=== PATIENT | female | born 1965 | race Caucasian/White ===

== ENCOUNTER → 2020-11-13 11:59 | Outpatient (CLI) | payer OTHER, SELFPAY ==
[2020-11-13 14:57] LABS: Absolute Lymphocyte Count 2.51 X10^3/uL (0.83-4.51); Absolute Neutrophil Count 5.8 X10^3/uL (2.0-7.7); Basophil# 0.05 X10^3/uL; Basophil% 0.6 % (0-1); Eosinophil# 0.12 X10^3/uL; Eosinophils% 1.3 % (0-5); Hematocrit 43.1 % (37-47); Hemoglobin 13.1 g/dL (12.0-15.0); Lymphocyte # 2.51 X10^3/ul (4.0); Lymphocyte % 28.2 % (19-41); Mean Corp Hgb Conc 30.4 g/dL (32-36); Mean Corpuscular Hgb 27.7 pg (27.0-32.0); Mean Corpuscular Volume 91.1 fL (81-99); Mean Platelet Vol. 10.6 fl (6.2-12.0); Monocyte# 0.42 X10^3/uL; Monocyte% 4.7 % (0-10); NRBC Flagged by Analyzer 0 % (0-5); Neutrophil # 5.77 X10^3/uL (2.7-7.7); Neutrophil % 64.8 % (47-70); Platelet Count 356 K/mm3 (150-450); RBC Distribution Width CV 13.7 % (11.6-14.6); Red Blood Count 4.73 M/mm3 (4.2-5.4); White Blood Count 8.9 K/mm3 (4.4-11.0)
[2020-11-13 15:26] LABS: Vitamin D,25 Hydroxy 37.2 ng/mL
[2020-11-13 15:36] LABS: ALB/GLOB Ratio 1.1 RATIO (0.9-2.4); AST(SGOT) 24 U/L (15-37); Alanine Aminotransfer ALT/SGPT 39 U/L (13-56); Albumin, Serum 4.2 g/dL (3.2-5.0); Alkaline Phosphatase 113 U/L (45-117); Anion Gap 6 (5-15); BUN 13 mg/dL (7-18); BUN/Creat Ratio 14.7 RATIO (10-20); Calcium,Total 9.3 mg/dL (8.5-10.1); Chloride 106 mmol/L (98-107); Cholesterol 200 mg/dL (200); Creatinine, Serum 0.88 mg/dL (0.55-1.02); EST Glomerular Filtration Rate 70 mL/min (>60); Est Glom Filt Rate - Afr Amer 85 mL/min (>60); Globulin 3.9 g/dL (2.2-4.2); Glucose 94 mg/dL (74-106); High Density Lipoprotein 46 mg/dL; Potassium 3.9 mmol/L (3.5-5.1); Protein, Total 8.1 g/dL (6.4-8.2); Sodium Level 138 mmol/L (136-145); T4 Free Direct 1.33 ng/dL (0.76-1.46); Thyroid Stim Hormone (TSH) 1.43 uIU/mL (0.358-3.74); Triglycerides 130 mg/dL; Very Low Density Lipoprotein 26 mg/dL (5-40)
== END ==
PROVIDERS: Referring Provider Nurse Practitioner Family; Visit Provider Nurse Practitioner Family
DX: Z00.00 Encounter for general adult medical examination without abnormal findings (principal); I10 Essential (primary) hypertension; E03.9 Hypothyroidism, unspecified
CPT/HCPCS: 36415; 80053; 80061; 82306; 84439; 84443; 85025

== ENCOUNTER → 2022-01-07 | Outpatient (CLI) | payer OTHER, SELFPAY ==
[2022-01-07 12:19] LABS: Absolute Lymphocyte Count 2.39 X10^3/uL (0.83-4.51); Absolute Neutrophil Count 4.2 X10^3/uL (2.0-7.7); Basophil# 0.07 X10^3/uL; Eosinophil# 0.15 X10^3/uL; Eosinophils% 2.1 % (0-5); Lymphocyte # 2.39 X10^3/ul (0.83-4.51); Lymphocyte % 33.1 % (19-41); Mean Corpuscular Hgb 27.8 pg (27.0-32.0); Mean Corpuscular Volume 89.9 fL (81-99); Mean Platelet Vol. 10.1 fl (6.2-12.0); Monocyte# 0.42 X10^3/uL; Monocyte% 5.8 % (0-10); NRBC Flagged by Analyzer 0 % (0-5); Neutrophil # 4.15 X10^3/uL (2.7-7.7); Neutrophil % 57.6 % (47-70); Platelet Count 338 K/mm3 (150-450); RBC Distribution Width CV 13.4 % (11.6-14.6); RBC Distribution Width SD 44.4 fl (35.1-43.9); Red Blood Count 4.67 M/mm3 (4.2-5.4); White Blood Count 7.2 K/mm3 (4.4-11.0)
[2022-01-07 12:42] LABS: Vitamin D,25 Hydroxy 47.1 ng/mL
[2022-01-07 12:53] LABS: AST(SGOT) 13 U/L (15-37); Alanine Aminotransfer ALT/SGPT 21 U/L (13-56); Albumin, Serum 3.8 g/dL (3.2-5.0); Alkaline Phosphatase 97 U/L (45-117); Anion Gap 7 (5-15); BUN 19 mg/dL (7-18); BUN/Creat Ratio 21.3 RATIO (10-20); Calcium,Total 9.1 mg/dL (8.5-10.1); Chloride 108 mmol/L (98-107); Cholesterol 172 mg/dL (200); Creatinine, Serum 0.89 mg/dL (0.55-1.02); EST Glomerular Filtration Rate 69 mL/min (>60); Est Glom Filt Rate - Afr Amer 84 mL/min (>60); Globulin 3.8 g/dL (2.2-4.2); Glucose 99 mg/dL (74-106); High Density Lipoprotein 41 mg/dL; Protein, Total 7.6 g/dL (6.4-8.2); Sodium Level 140 mmol/L (136-145); T4 Free Direct 1.48 ng/dL (0.76-1.46); Thyroid Stim Hormone (TSH) 0.06 uIU/mL (0.358-3.74); Triglycerides 140 mg/dL; Very Low Density Lipoprotein 28 mg/dL (5-40)
== END | disposition home or self-care (01) ==
LOC: BIMLAB 08:08
PROVIDERS: PCP Nurse Practitioner Family; Referring Provider Nurse Practitioner Family; Visit Provider Nurse Practitioner Family
DX: Z00.00 Encounter for general adult medical examination without abnormal findings (principal); E56.9 Vitamin deficiency, unspecified
CPT/HCPCS: 36415; 80053; 80061; 82306; 84439; 84443; 85025

== ENCOUNTER → 2022-02-17 | Outpatient (CLI) | payer OTHER, SELFPAY ==
--- NOTE | 2022-02-17 11:27 | BI_ITS ---
MAMMOGRAPHY - BILATERAL SCREENING REASON FOR EXAM: Female, 56 years old. Routine annual screening examination. PERTINENT HISTORY: Aunts with breast cancer. TECHNIQUE: Digital bilateral breast satnam (3D mammographic acquisition) in the CC and MLO projections. 2-D mediolateral oblique (MLO) and craniocaudad (CC) views of both breasts were obtained. CAD: Full Field Digital Mammography with Computer Added Detection was performed. COMPARISON: Comparison is made with prior outside examination 03/15/2019. FINDINGS: Breast Composition: There are scattered areas of fibroglandular density. There are no dominant masses or suspicious calcifications. No other significant abnormalities are identified. There has been no significant change since the prior study. BI/SCRN MAMM (CAD)W/SATNAM BILAT IMPRESSION: Stable bilateral screening mammogram. Yearly follow-up mammogram recommended. (A) ASSESSMENT CATEGORY: BIRADS Category 1: Negative. A letter regarding these results will be sent to the patient by the facility within 30 days. Approximately 10% of breast cancers are not detected by mammography. A normal mammogram should not delay biopsy of a clinically suspicious abnormality. [id number] Electronically Signed: Mike Holguin MD at 8:35 EDT ,
--- NOTE | 2022-02-17 11:29 | BD_ITS ---
STUDY: DUAL ENERGY X-RAY ABSORPTIOMETRY / DXA REASON FOR EXAM: Female, 56 years old. Screening TECHNIQUE: Bone Mineral Density (BMD) measurements of lumbar spine and bilateral hips were obtained. COMPARISON: None. FINDINGS: Lumbar Spine (L1-L4): g/cm2 (0.893) / T-score (-1.4) / Z-score (-0.2) Findings are suggestive of osteopenia with a low fracture risk. Left Femur Total: g/cm2 (0.838) / T-score (-0.9) / Z-score (-0.1) Left Femoral Neck: g/cm2 (0.737) / T-score (-1.0) / Z-score (0.1) Right Femur Total: g/cm2 (0.917) / T-score (-0.2) / Z-score (0.6) Right Femoral Neck: g/cm2 (0.723) / T-score (-1.1) / Z-score (0.0) BD/Dexa Bone Density Study IMPRESSION: The patient is considered osteopenic as outlined below according to World Fahe[employer] Organization (WHO) criteria with a low fracture risk. Reference Information: The T-score is the number of standard deviations above or below the standard which is normal for young adults at their peak bone mineral density. The World Health Organization (WHO) interprets the T-scores as follows: Above -1 Normal bone density Between -1 and -2.5 Osteopenia Equal to / or below -2.5 Osteoporosis As a practical clinical guideline, osteopenia may be graded as follows: Mild -1 through -1.5 Moderate -1.6 through -2.0 Severe -2.1 through -2.4 The Z-score is the number of standard deviations above or below age-matched controls. A Z-score of less than -1.5 would be considered abnormal. References: 1. NIH Osteoporosis and Related Bone Diseases www osteo.org 2. International Society for Clinical Densitometry www iscd.org 3. National Osteoporosis Foundation www nof.org Electronically Signed: Mike Holguin MD at 14:19 EDT ,
== END | disposition home or self-care (01) ==
LOC: OPBD 11:26
PROVIDERS: PCP Nurse Practitioner Family; Visit Provider Nurse Practitioner Family
DX: Z78.0 Asymptomatic menopausal state (principal); Z12.31 Encounter for screening mammogram for malignant neoplasm of breast
CPT/HCPCS: 77063; 77067; 77080

== ENCOUNTER → 2022-11-19 | Outpatient (CLI) | payer OTHER, SELFPAY ==
[2022-11-19 17:21] LABS: T4 Free Direct 1.38 ng/dL (0.76-1.46); Thyroid Stim Hormone (TSH) 0.86 uIU/mL (0.358-3.74)
== END | disposition home or self-care (01) ==
PROVIDERS: PCP Nurse Practitioner Family; Referring Provider Nurse Practitioner Family; Visit Provider Nurse Practitioner Family
DX: E03.9 Hypothyroidism, unspecified (principal)
CPT/HCPCS: 36415; 84439; 84443

== ENCOUNTER → 2024-11-06 | Outpatient (CLI) | payer OTHER, SELFPAY ==
[2024-11-06 13:31] LABS: Cholesterol 160 mg/dL (<=200); High Density Lipoprotein 44 mg/dL; Low Density Lipoprotein Calc. 80 mg/dL; Triglycerides 182 mg/dL; Very Low Density Lipoprotein 36 mg/dL (5-40); Vitamin D,25 Hydroxy 34.1 ng/mL (30-100); cholesterol:hdl ratio screen 3.65
[2024-11-06 13:51] LABS: ALB/GLOB Ratio 1.3 RATIO (0.9-2.4); AST(SGOT) 19 U/L (<=31); Alanine Aminotransfer ALT/SGPT 16 U/L (<=34); Albumin, Serum 4.3 g/dL (3.5-5.0); Alkaline Phosphatase 115 U/L (35-104); Anion Gap 11 (5-15); BUN 16 mg/dL (4-19); BUN/Creat Ratio 19.2 RATIO (10-20); Calcium,Total 9.4 mg/dL (7.6-11.0); Chloride 105 mmol/L (98-108); Creatinine, Serum 0.83 mg/dL (0.70-1.20); EST Glomerular Filtration Rate 82 (>60); Globulin 3.2 g/dL (2.2-4.2); Glucose 108 mg/dL (70-99); Potassium 4.1 mmol/L (3.3-5.1); Protein, Total 7.5 g/dL (5.9-8.4); Sodium Level 140 mmol/L (133-145); Total Bilirubin 0.36 mg/dL (0.00-1.30)
== END | disposition home or self-care (01) ==
LOC: BIMLAB 10:04
PROVIDERS: PCP Nurse Practitioner Family; Visit Provider Nurse Practitioner Family
DX: E03.9 Hypothyroidism, unspecified (principal)
CPT/HCPCS: 36415; 80053; 80061; 82306; 84439; 84443

== ENCOUNTER → 2025-02-22 | Outpatient (CLI) | payer OTHER, SELFPAY ==
--- NOTE | 2025-02-22 07:21 | BI_ITS ---
EXAM: SCRN MAMM (CAD)W/SATNAM BILAT DATE: 02/22/2025 CLINICAL HISTORY: F, Age 59 y/o , SCREENING TECHNIQUE: SCRN MAMM (CAD)W/SATNAM BILAT COMPARISON: Prior exam(s) dated 02/17/2022. FINDINGS: TISSUE DENSITY: The breasts are almost entirely fatty. Bilateral Breast Mammographic Findings: No significant masses, calcifications or other abnormalities are identified. BI/SCRN MAMM (CAD)W/SATNAM BILAT IMPRESSION: There is no mammographic evidence of malignancy. OVERALL FINAL ASSESSMENT BI-RADS 1: NEGATIVE. RECOMMEND ANNUAL MAMMOGRAPHIC SCREENING. RECOMMENDATION: Routine annual follow-up in 1 Year A letter with findings and recommendations will be mailed to the patient. Reading Location: [id number]
--- OUTSIDE RECORDS SUMMARY | 2025-02-22 07:21 | XMS RPT_ITS | CCD ---
Author Organization [facility] Care Team Providers Care Freight Receiver Name Role Phone Rebecca K 12 PRINCIPAL, K 12 PRINCIPAL-C Maykel Primary Care Provider Annalise Teran Attending Provider Unavailable Rebecca K 12 PRINCIPAL, K 12 PRINCIPAL-C Maykel Attending Provider Rebecca FARR, K 12 PRINCIPAL-C Maykel Referring Provider [phone] Self Primary Care Provider ESTEFANIA Nicole Attending Unavailable Asher FARR-Carolyne Gonzalez Primary Care Provider Carolyne Gordon Attending Provider Self Primary Care Provider UnavailEDIL Leslie Referring Unavailsilke e SELF Primary Care Unavailable NURSE, IMB Attending Unavailable Carolyne Sterling Attending Unavailable Carolyne Sterling Primary Care Unavailable Carolyne Sterling Primary Care Unavailable Carolyne Sterling Referring Unavailable Carolyne Sterling Attending Unavailable EDIL WOOD Attending UnavailEDIL Leslie Referring Unavailsilke e SELF Primary Care Unavailable Allergies Allergy Classification Reported Allergen(s) Allergy Type Date of Onset Reaction(s) Facility (12 sources) Cephalosporins (Antibiotic); Translations: [CEPHALOSPORINS] Allergy to substance 2 Other: See Comments [facility] (12 sources) Penicillins; Translations: [PENICILLINS] Allergy to substance 2 Other: See Comments [facility] Medications Current Medications Medication Drug Class(es) Dates Sig (Normalized) Sig (Original) cholecalciferol 0.05 mg oral capsule (8 sources) Vitamin D Start: 01-07-2022 take 1 capsule by mouth once daily Cholecalciferol (Vitamin D3) 50 mcg (2,000 unit) capsule Active 50 ug PO DAILY January 07, 2022 12:00am take 1 capsule by [facility] four times weekly Cholecalciferol, Vitamin D3, (VITAMIN D- 3) 2,000 unit cap Take 2,000 Units by mouth four times a week. Active Comment on above: Take 2,000 Units by mouth four times a week. citric acid 84943 mg / magnesium oxide 3500 mg / picosulfate sodium 10 mg powder for oral solution (4 sources) Calculi Dissolution Agent, Anti-coagulant Start: 10-19-2017 sod picosulf-mag ox-citric ac (PREPOPIK) 10 mg-3.5 gram-12 gram pwpk Indications: Personal history of colonic polyps Follow the instructions provided by your doctor. 2 Packet 10/19/2017 Active Comment on above: Follow the instructi ons provided by your doctor. ergocalciferol, vitamin D2, (VITAMIN D2 ORAL) (4 sources) ergocalciferol, vitamin D2, (VITAMIN D2 ORAL) Take by mouth. Active ergocalciferol, vitamin D2, (VITAMIN D2 ORAL) Take by mouth. 0 Active Comment on above: Take by mouth. ibandronic acid 150 mg oral tablet (4 sources) Bisphosphonate Start: 03-19-20 19 take 1 tablet by mouth every month Ibandronate 150 mg tablet Indications: Postmenopausal bone loss Take 1 tablet by mouth once every month. 3 tablet 3 03/19/2019 Active Comment on above: Take 1 tablet by annette th once every month. ibuprofen 200 mg oral capsule (4 sources) Nonsteroidal Anti-inflammatory Drug Ibuprofen 200 mg cap Take by mouth. Active Comment on above: Take by mouth. levothyroxine sodium 0.112 mg oral tablet (20 sources) l-Thyroxine Start: 04-04-20 20 End: 02-16-20 23 take 1 tablet by mouth once daily Levothyroxine 125 mcg tablet Discontinued 125 ug PO DAILY 90 January 30, 2021 10:03am January 07, 2022 1:25pm Start: 05-04-2018 End: 12-21-2023 take 1 tablet by mouth once daily levothyroxine (SYNTHROID) 112 mcg tablet Indications: Nontoxic single thyroid nodule Take 1 tablet by mouth once daily. 90 tablet 3 05/04/2018 Active Comment on above: Take 1 tablet by annette th once daily. LORazepam 1 mg oral tablet (4 sources) Benzodiazepine Start: 022 take 0.5-1 mg by mouth once daily as needed for anxiety Lorazepam 1 mg tablet Active 0.5 - 1 mg PO DAILY as needed for anxiety January 08, 2022 12:00am 24 hr metoprolol succinate 25 mg extended release oral tablet (4 sources) beta-Adrenergic Bethany Start: take 1 tablet by mouth once daily metoprolol succinate ER (TOPROL XL) 25 mg 24 hr tablet Indications: Essential hypertension Take 1 tablet by mouth once daily. 90 tablet 3 05/04/2018 Active Comment on above: Take 1 tablet by annette th once daily. ondansetron 4 mg oral tablet (4 sources) Serotonin-3 Receptor Antagonist Start: take 1 tablet by mouth every eight hours as needed ondansetron (ZOFRAN) 4 mg tablet Take 1 tablet by mouth every 8 hours as needed. 14 tablet 09/08/2018 Active Comment on above: Take 1 tablet by annette th every 8 hours as needed. phenylephrine hydrochloride 25 mg/ml ophthalmic solution (1 source) alpha-1 Adrenergic Agonist Start: End: PHENYLephrine 2.5 % 1 Drop (AK-DILATE, LEONARD-SYNEPHRINE) proparacaine hydrochloride 5 mg/ml ophthalmic solution (1 source) Local Anesthetic Start: End: proparacaine 0.5 % 1 Drop (ALCAINE) tropicamide 10 mg/ml ophthalmic solution (1 source) Anticholinergic Start: End: tropicamide 1 % 1 Drop (MYDRIACYL) Problems Active Problems Problem Classification Problem Date Documented Da te Episodic/Chronic Anxiety disorders (1 source) Anxiety disorder, unspecified; Translations: [Anxiety state, unspecified] Chronic Diabetes mellitus without complication (4 sources) Prediabetes; Translations: [Prediabetes] 01-07-2022 Episodic Essential hypertension (4 sources) Hypertensive disorder; Translations: [Essential (primary) hypertension] Onset: 04-24-2012 04-24-2012 Chronic Heart valve disorders (4 sources) Heart murmur; Translations: [Cardiac murmur, unspecified] 01-07-2022 Episodic Joint disorders and dislocations; trauma-related (10 sources) Ligamentous laxity of knee; Translations: [Unspecified internal derangement of left knee] Onset: 05-02-2018 05-02-2018 Chronic Nutritional deficiencies (4 sources) Vitamin D deficiency; Translations: [Vitamin D deficiency, unspecified] 09-04-2018 Chronic Osteoarthritis (20 sources) Osteoarthritis; Translations: [Unspecified osteoarthritis, unspecified site] Onset: 05-02-2018 01-07-2022 Chronic Osteoporosis (4 sources) Postmenopausal osteoporosis; Translations: [Age-related osteoporosis without current pathological fracture] 03-19-2019 Chronic Other bone disease and musculoskeletal deformities (4 sources) Osteopenia; Translations: [Other specified disorders of bone density and structure, unspecified site] 01-07-2022 Episodic Other eye disorders (1 source) Vitreous opacities; Translations: [Other vitreous opacities, unspecified eye] 12-01-2023 Chronic Other eye disorders (1 source) Vitreous detachment; Translations: [Vitreous degeneration, left eye] 01-26-2023 Chronic Other inflammatory condition of skin (4 sources) Psoriasis; Translations: [Psoriasis, unspecified] 01-07-2022 Chronic Other screening for suspected conditions (not mental disorders or infectious disease) (1 source) Encounter for screening mammogram for malignant neoplasm of breast; Translations: [Encounter for screening mammogram for malignant neoplasm of breast] Onset: 02-14-2025 Episodic Thyroid disorders (19 sources) Thyroid nodule; Translations: [Nontoxic single thyroid nodule] Onset: 10-19-2017 Chronic Comment on above: 2.5 CM FNA benign 20 17 Past or Other Problems Problem Classification Problem Date Documented Date Episodic/Chronic Immunizations and screening for infectious disease (2 sources) Needs influenza immunization; Translations: [Encounter for immunization] Onset: 06-04-2024 06-04-2024 Episodic Joint disorders and dislocations; trauma-related (4 sources) Tear of lateral meniscus of knee; Translations: [Other tear of lateral meniscus, current injury, left knee, initial encounter] Onset: 05-02-2018 05-02-2018 Episodic Other and unspecified benign neoplasm (8 sources) History of polyp of colon; Translations: [Personal history of colonic polyps] Onset: 06-15-2018 06-15-2018 Episodic Other nervous system disorders (4 sources) Ataxic gait; Translations: [Ataxic gait] Onset: 10-06-2018 10-06-2018 Episodic Other nervous system disorders (4 sources) Antalgic gait; Translations: [Other abnormalities of gait and mobility] Onset: 10-10-2018 10-10-2018 Episodic Other non-traumatic joint disorders (4 sources) Decreased range of knee movement; Translations: [Stiffness of left knee, not elsewhere classified] Onset: 10-05-2018 10-05-2018 Episodic Residual codes; unclassified (4 sources) History of colonoscopy; Translations: [Other specified postprocedural states] Onset: 10-19-2017 10-19-2017 Episodic Residual codes; unclassified (4 sources) History of arthroscopy of knee joint; Translations: [Other specified postprocedural states] Onset: 09-21-2018 09-21-2018 Episodic Results Test Name Value Interpretation Reference Range Facility [facility] 02-12-2025 CNPN Telephone ([id number]) RUPERTO LEMUS MD ([id number]) 1965 [facility] Date Time Provider Department 02/12/25 [facility] During your visit today, we recorded the following information about you: Kaya Motorcycle Mechanic Apprentice Janki Alesia Tin 02/12/2025 1:55 PM Signed ----- Message from Karlie Gonzalez sent at 02/12/2025 9:29 AM EDT ----- Regarding: Orthopedics / Salud/requesting sooner appointment to discuss MRI results on knee-first opening 04/25;pt able to do video/phone call Subject Line Format: Orthopedics / [Provider Name or Open AND Body Part] / [Issue] Patient has been identified by name and Date of (Y/N): y Patient: Ruperto Lemus MD Date of : 1965 Previous Provider Seen: Edil Coe Body Part(s) Identified: L knee Diagnosis/Reason For Visit: MRI results Reason for the call/escalation: requesting sooner appointment to discuss MRI results on knee_first opening 04/25;pt able to do video/phone call If reason for call/escalation is discharge from ED/ER or Hospital, which facility was the patient seen at: no Was an appointment scheduled (Y/N): no-pt requesting sooner Person calling if other than patient: n/a Return call to if other than patient: n/a Best contact number: [phone] Thank you, Karlie PolancoCordell February 12, 2025 9:29 AM [facility] Motorcycle Mechanic Apprentice JankiAlesia 02/18/2025 1:53 PM [address] Spoke to Dr. Lemus, she is going to wait until she loses weight before she returns to go over MRI. Allergies As of Date: 02/12/2025 Noted Allergy Reaction CEPHALOSPORINS 04/24/2012 14 - Other: See Comments Comments: angioedema PENICILLINS 04/24/2012 14 - Other: See Comments Comments: Angioedema Date Reviewed: 02/06/2025 Reviewed by: Liberty Junior, RT(R) - Fully Assessed Prescriptions as of 02/18/2025 - Ibandronate 150 mg tablet Take 1 tablet by mouth once every month. - typhoid vaccine, oral (VIVOTIF GEOVANI) 2 billion unit cpDR Take 1 capsule by mouth every other day. - Cholecalciferol, Vitamin D3, (VITAMIN D-3) 2,000 unit cap Take 2,000 Units by mouth four times a week. - Ibuprofen 200 mg cap Take by mouth. - ondansetron (ZOFRAN) 4 mg tablet Take 1 tablet by mouth every 8 hours as needed. - ergocalciferol, vitamin D2, (VITAMIN D2 ORAL) Take by mouth. - levothyroxine (SYNTHROID) 112 mcg tablet Take 1 tablet by mouth once daily. - metoprolol succinate ER (TOPROL XL) 25 mg 24 hr tablet Take 1 tablet by mouth once daily. - sod picosulf-mag ox-citric ac (PREPOPIK) 10 mg-3.5 gram-12 gram pwpk Follow the instructions provided by your doctor. Meds Comments as of 03/14/2019: . 03/14/19 The medications are managed by this patient by: PATIENT Flower Enrique, Storone Problem List As Of Date 02/12/2025 Noted Resolved HTN (hypertension) [I10] 04/24/2012 Nontoxic single thyroid nodule [E04.1] 10/19/2017 History of colonoscopy with polypectomy [Z98.89*10/19/2017 Ligamentous laxity of left knee [M23.92] 05/02/2018 Tear of lateral meniscus of left knee, current *05/02/2018 Primary osteoarthritis of right knee [M17.11] 05/02/2018 Primary osteoarthritis of left knee [M17.12] 05/02/2018 History of colonic polyps [Z86.0100] 06/15/2018 History of colon polyps [Z86.0100] 06/15/2018 Hypothyroid [E03.9] Vitamin D deficiency [E55.9] S/P left knee arthroscopy [Z98.890] 09/21/2018 Decreased range of motion of left knee [M25.662]10/05/2018 Ataxic gait [R26.0] 10/06/2018 Antalgic gait [R26.89] 10/10/2018 Postmenopausal bone loss [M81.0] Encounter Status:Closed by [facility]ISTER[facility] ALESAI FAULKNER on 02/18/25 Normal [facility] MR Knee - left WO contraston 02-06-2025 IMPRESSION: Lateral meniscus postoperative changes with fraying and postoperative changes versus tear. Suspicion of medial meniscus tear. Tricompartmental osteoarthritis. Tiny joint effusion, trace De La Rosa's cyst, and suspected posteromedial subcentimeter ganglion/synovial cyst. Transcribe Date/Time: Feb 06 2025 11:04A Dictated by: NICOLE GUILLEN MD This examination was interpreted and the report reviewed and electronically signed by: NICOLE GUILLEN MD on Feb 06 2025 11:14AM EST Thank you for allowing us to participate in the care of your patient. Should there be any questions regarding this interpretation, please call . If you are unable to reach us at the number above, please feel free to contact [facility] at [phone]. [facility] * * *Final Report* * * DATE OF EXAM: Feb 06 2025 9:15AM [facility] 0212 - MRI KNEE WO IVCON LT / PROCEDURE REASON: multiple diagnoses * * * * Physician Interpretation * * * * RESULT: EXAMINATION: MRI LEFT KNEE WITHOUT CONTRAST CLINICAL HISTORY: Primary osteoarthritis of left knee Primary osteoarthritis of right knee Old bucket handle tear of lateral meniscus of left knee previous arthroscopy subtotal lateral meniscectomy with suspicion of recurrent tear and trapped in knee. TECHNIQUE: Multiplanar, multisequence imaging of the knee was performed without contrast. COMPARISON: MRI left knee report dated 08/01/2018 (no images available). Left knee radiographs 01/17/2025 RESULT: Motion artifacts. MENISCI: Medial Meniscus: Horizontal linear increased PD signal of the posterior horn and meniscal body with equivocal inferior articular surface contact near their junction (for example image 14 series 6) suspicious for a nondisplaced tear. Lateral Meniscus: Volume loss of the lateral meniscus markedly involving the meniscal body, compatible with postoperative changes of partial meniscectomy, with minimal 2 to 3 mm lateral/region of the meniscal body, and slight irregularity along the inner free margin compatible with fraying. Linear horizontal increased PD signal of the posterior horn and junctional meniscal body with inferior articular surface contact which may relate to postoperative changes or nondisplaced tear. LIGAMENTS: ACL: Intact PCL: Intact MCL: Intact LCL Complex: Intact CARTILAGE: Medial Femoral Condyle: High grade (greater than 50% thickness) partial thickness cartilage loss and or fissuring involving the weightbearing femoral condyle Medial Tibial Plateau: Low grade (less than 50% thickness) partial thickness cartilage loss and or fissuring Lateral Femoral Condyle: High grade (greater than 50% thickness) partial thickness cartilage loss and or fissuring involving the posterior weightbearing femoral condyle Lateral Tibial Plateau: Low grade (less than 50% thickness) partial thickness cartilage loss and or fissuring Patella: High grade (greater than 50% thickness) partial thickness cartilage loss and or fissuring involving the medial patellar facet Trochlea: High grade (greater than 50% thickness) partial thickness cartilage loss and or fissuring involving the central/lateral femoral trochlea TENDONS: The distal quadriceps and patellar tendons are intact. The popliteus tendon is intact. BONES AND MARROW: No evidence of acute fracture or pathologic marrow replacing lesion. Tricompartmental osteophytes. MUSCLES: Muscle bulk and signal intensity are normal. JOINT FLUID AND SYNOVIUM: Tiny joint effusion. No synovitis. Trace De La Rosa's cyst. Suggestion of small ganglion or synovial cyst about the posteromedial margin of the medial tibial plateau measuring up to 0.9 cm. OTHER: Anterior knee and proximal leg subcutaneous edema. LOCALIZER IMAGES: No other significant findings. [facility] Provider, [facility] - 02/06/2025 * * *Final Report* * * DATE OF EXAM: Feb 06 2025 9:15AM [facility] 0212 - MRI KNEE WO DOROTHEAON LT / PROCEDURE REASON: multiple diagnoses * * * * Physician Interpretation * * * * RESULT: EXAMINATION: MRI LEFT KNEE WITHOUT CONTRAST CLINICAL HISTORY: Primary osteoarthritis of left knee Primary osteoarthritis of right knee Old bucket handle tear of lateral meniscus of left knee previous arthroscopy subtotal lateral meniscectomy with suspicion of recurrent tear and trapped in knee. TECHNIQUE: Multiplanar, multisequence imaging of the knee was performed without contrast. COMPARISON: MRI left knee report dated 08/01/2018 (no images available). Left knee radiographs 01/17/2025 RESULT: Motion artifacts. MENISCI: Medial Meniscus: Horizontal linear increased PD signal of the posterior horn and meniscal body with equivocal inferior articular surface contact near their junction (for example image 14 series 6) suspicious for a nondisplaced tear. Lateral Meniscus: Volume loss of the lateral meniscus markedly involving the meniscal body, compatible with postoperative changes of partial meniscectomy, with minimal 2 to 3 mm lateral/region of the meniscal body, and slight irregularity along the inner free margin compatible with fraying. Linear horizontal increased PD signal of the posterior horn and junctional meniscal body with inferior articular surface contact which may relate to postoperative changes or nondisplaced tear. LIGAMENTS: ACL: Intact PCL: Intact MCL: Intact LCL Complex: Intact CARTILAGE: Medial Femoral Condyle: High grade (greater than 50% thickness) partial thickness cartilage loss and or fissuring involving the weightbearing femoral condyle Medial Tibial Plateau: Low grade (less than 50% thickness) partial thickness cartilage loss and or fissuring Lateral Femoral Condyle: High grade (greater than 50% thickness) partial thickness cartilage loss and or fissuring involving the posterior weightbearing femoral condyle Lateral Tibial Plateau: Low grade (less than 50% thickness) partial thickness cartilage loss and or fissuring Patella: High grade (greater than 50% thickness) partial thickness cartilage loss and or fissuring involving the medial patellar facet Trochlea: High grade (greater than 50% thickness) partial thickness cartilage loss and or fissuring involving the central/lateral femoral trochlea TENDONS: The distal quadriceps and patellar tendons are intact. The popliteus tendon is intact. BONES AND MARROW: No evidence of acute fracture or pathologic marrow replacing lesion. Tricompartmental osteophytes. MUSCLES: Muscle bulk and signal intensity are normal. JOINT FLUID AND SYNOVIUM: Tiny joint effusion. No synovitis. Trace De La Rosa's cyst. Suggestion of small ganglion or synovial cyst about the posteromedial margin of the medial tibial plateau measuring up to 0.9 cm. OTHER: Anterior knee and proximal leg subcutaneous edema. LOCALIZER IMAGES: No other significant findings. IMPRESSION IMPRESSION: Lateral meniscus postoperative changes with fraying and postoperative changes versus tear. Suspicion of medial meniscus tear. Tricompartmental osteoarthritis. Tiny joint effusion, trace De La Rosa's cyst, and suspected posteromedial subcentimeter ganglion/synovial cyst. Transcribe Date/Time: Feb 06 2025 11:04A Dictated by: NICOLE GUILLEN MD This examination was interpreted and the report reviewed and electronically signed by: NICOLE GUILLEN MD on Feb 06 2025 11:14AM EST Thank you for allowing us to participate in the care of your patient. Should there be any questions regarding this interpretation, please call . If you are unable to reach us at the number above, please feel free to contact [facility] at [phone]. [facility] Radiology Study observation (narrative) [facility] MR Knee - left WO contrastOr dered By: [facility] Provider on 02-06-2025 [facility] MRI KNEE WO IVCON LTon 02-06 MRI KNEE WO IVCON LT * * *Final Report* * * DATE OF EXAM: Feb 06 2025 9:15AM [facility] 0212 - MRI KNEE WO IVCON LT / PROCEDURE REASON: multiple diagnoses * * * * Physician Interpretation * * * * RESULT: EXAMINATION: MRI LEFT KNEE WITHOUT CONTRAST CLINICAL HISTORY: Primary osteoarthritis of left knee Primary osteoarthritis of right knee Old bucket handle tear of lateral meniscus of left knee previous arthroscopy subtotal lateral meniscectomy with suspicion of recurrent tear and trapped in knee. TECHNIQUE: Multiplanar, multisequence imaging of the knee was performed without contrast. COMPARISON: MRI left knee report dated 08/01/2018 (no images available). Left knee radiographs 01/17/2025 RESULT: Motion artifacts. MENISCI: Medial Meniscus: Horizontal linear increased PD signal of the posterior horn and meniscal body with equivocal inferior articular surface contact near their junction (for example image 14 series 6) suspicious for a nondisplaced tear. Lateral Meniscus: Volume loss of the lateral meniscus markedly involving the meniscal body, compatible with postoperative changes of partial meniscectomy, with minimal 2 to 3 mm lateral/region of the meniscal body, and slight irregularity along the inner free margin compatible with fraying. Linear horizontal increased PD signal of the posterior horn and junctional meniscal body with inferior articular surface contact which may relate to postoperative changes or nondisplaced tear. LIGAMENTS: ACL: Intact PCL: Intact MCL: Intact LCL Complex: Intact CARTILAGE: Medial Femoral Condyle: High grade (greater than 50% thickness) partial thickness cartilage loss and or fissuring involving the weightbearing femoral condyle Medial Tibial Plateau: Low grade (less than 50% thickness) partial thickness cartilage loss and or fissuring Lateral Femoral Condyle: High grade (greater than 50% thickness) partial thickness cartilage loss and or fissuring involving the posterior weightbearing femoral condyle Lateral Tibial Plateau: Low grade (less than 50% thickness) partial thickness cartilage loss and or fissuring Patella: High grade (greater than 50% thickness) partial thickness cartilage loss and or fissuring involving the medial patellar facet Trochlea: High grade (greater than 50% thickness) partial thickness cartilage loss and or fissuring involving the central/lateral femoral trochlea TENDONS: The distal quadriceps and patellar tendons are intact. The popliteus tendon is intact. BONES AND MARROW: No evidence of acute fracture or pathologic marrow replacing lesion. Tricompartmental osteophytes. MUSCLES: Muscle bulk and signal intensity are normal. JOINT FLUID AND SYNOVIUM: Tiny joint effusion. No synovitis. Trace De La Rosa's cyst. Suggestion of small ganglion or synovial cyst about the posteromedial margin of the medial tibial plateau measuring up to 0.9 cm. OTHER: Anterior knee and proximal leg subcutaneous edema. LOCALIZER IMAGES: No other significant findings. IMPRESSION: Lateral meniscus postoperative changes with fraying and postoperative changes versus tear. Suspicion of medial meniscus tear. Tricompartmental osteoarthritis. Tiny joint effusion, trace De La Rosa's cyst, and suspected posteromedial subcentimeter ganglion/synovial cyst. Transcribe Date/Time: Feb 06 2025 11:04A Dictated by: NICOLE GUILLEN MD This examination was interpreted and the report reviewed and electronically signed by: NICOLE GUILLEN MD on Feb 06 2025 11:14AM EST Thank you for allowing us to participate in the care of your patient. Should there be any questions regarding this interpretation, please call . If you are unable to reach us at the number above, please feel free to contact [facility]Radiology at [phone]. [id number] N [facility] XR Knee AP and Lateral and M kael 01-27-2025 Radiology Study observation (narrative) [facility] Radiology Study observation (narrative) [facility] CNOVon 01-17-2025 CNOV Office Visit ([id number] ) RUPERTO LEMUS MD ([id number]) 1965 F Date Time Provider Department 01/17/25 3:00 PM EDIL WOOD [id number] During your visit today, we recorded the following information about you: Respiration Weight Height 18/minute 109.8 kg 1.676 m Pankaj Lyles Tech 01/27/2025 11:21 AM Signed REVIEW OF SYSTEMS: GENERAL: Well developed, well nourished. No acute distress PAIN: Pain b/l knee CARDIOVASCULAR: Negative for chest pain, leg swelling and palpations. MSK: Negative for joint swelling SKIN: Negative for lesions, rash, itching, metal sensitivity NEURO: Negative for seizure, trauma, numbness/tingling of extremities. ENDOCRINE: Negative for diabetic associated symptoms HEMATOLOGY: Negative for excessive bleeding, clots, bleeding disorders. Edil Wood MD 01/27/2025 11:21 AM Signed Consulting physician: Self Chief Complaint: Bilateral knee pain History: Ruperto Lemus MD is a 59 year old female who presents with a chronic history of right knee pain and with a chronic history of left knee pain. Right knee: She reports atraumatic history of knee pain. The pain is located anterior. The pain is quantitated as a 3/10, 6/10.The pain is dull and intermittent. She also has symptoms of stiffness, catching, activity related pain such as twisting, turning and pivoting, and pain with ascending and descending stairs. Left knee: She reports atraumatic history of knee pain. The pain is located anterior and lateral. The pain is quantitated as a 3/10, 6/10.The pain is dull, sharp, and intermittent. She also has symptoms of stiffness, catching, locking, activity related pain such as twisting, turning and pivoting, pain with ascending and descending stairs, and pain with squatting and prolonged flexion activities. She is taking Over the counter medications or nothing for pain management purposes. There is no lower extremity numbness or tingling. No hip, back, or groin pain. She denies chest pain, SOB, fever,or chills. No calf pain reported. The patient is capable of doing activities of daily living. The patient is not using an ambulatory aide. Treatment has consisted of: activity modificaton REVIEW OF SYSTEMS: The review of systems was obtained and reviewed today. It is contained in todays visit in the nursing notes section. The patient's past medical, family medical, social and surgical histories have been reviewed. I have also reviewed allergies and medications with the patient as well. PHYSICAL EXAMINATION: Resp 18 Ht 5' 6 (1.68m) Wt 242 lb (109.8kg) BMI 39.08 kg/(m2). Body habitus is well developed, well nourished. Ruperto is alert and oriented and in no acute distress. Evaluation of both knees: Lower Extremity: RIGHT LEFT Skin intact intact Ecchymosis absent absent Erythema absent absent Effusion None None ROM Active/Passive Extension 0 Active/Passive Flexion 115 Active/Passive Extension 0 Active/Passive Flexion 115 Tenderness patellofemoral lateral joint line and patellofemoral Muscle Compartments of Lower Extremity Muscle compartments are soft and nontender Muscle compartments are soft and nontender Medial Liana's negative for pain negative for pain Lateral Liana's negative for pain positive for pain Crepitance patellofemoral lateral joint line and patellofemoral Knee Tests: Anterior Drawer Monie Posterior Drawer Pivot Shift Sag Sign Varus Stress Test at 0 and 30 Valgus Stress Test at 0 and 30 All Negative stable to varus testing at 0 and 30 degrees. stable to valgus testing at 0 and 30 degrees. All Negative stable to varus testing at 0 and 30 degrees. stable to valgus testing at 0 and 30 degrees. Patella Normal patellar mobility Normal Q Angle J Sign not present Normal patellar tilt and glide No apprehension sign Normal patellar mobility Normal Q Angle J Sign not present Normal patellar tilt and glide No apprehension sign Alignment neutral neutral Calf No calf tenderness, negative Debi exam and no palpable cords No calf tenderness, negative Debi exam and no palpable cords Neurologic Lower extremity muscle strength intact; lower extremity sensation intact to light touch 5/5 strength Lower extremity muscle strength intact; lower extremity sensation intact to light touch 5/5 strength Circulation intact intact Edema absent absent Functional ROM is noted of the ipsilateral hip and ankle. Assessment: Primary osteoarthritis of left knee (primary encounter diagnosis) Primary osteoarthritis of right knee Old bucket handle tear of lateral meniscus of left knee Treatment and Pain Management Plan: Signs and symptoms of the left knee indicated loose fragment and internal derangement. It has not gotten better with NSAIDs, home exercises, activity modification and other nonoperative treatment. I hav (more content not included)... Normal [facility] XR Knee AP and Lateral and M erchantson 01-17-2025 [facility] Anion gap in Serum or Plasma Ordered By: Carolyne Sterling on 11-06-2024 Anion gap [Moles/Vol] 11 mmol/L 5-15 [facility] BUN/creatinine ratioOrdered By: Carolyne Sterling on 11-06-2024 Urea nitrogen/Creatinine [Mass ratio] 19.2 mg/mg 10-20 [facility] Bilirubin, totalOrdered By: Carolyne Sterling on 11-06-2024 Bilirubin [Mass/Vol] 0.36 mg/dL 0.00-1.30 [facility] Calculated very low density lipoprotein (VLDL) cholesterol measurementOrdered By: Carolyne Sterling on 11-06-2024 VLDL Cholesterol 36 mg/dL 5-40 [facility] Carbon dioxide, total [Moles /volume] in Central venous bloodOrdered By: Carolyne Sterling on 11-06-2024 CO2 [Moles/Vol] 24.0 mmol/L 21.0-32.0 [facility] Chloride assayOrdered By: Me tamika Sterling on 11-06-2024 Chloride [Moles/Vol] 105 mmol/L 98-108 [facility] Comprehensive Metabolic Prof ilon 11-06-2024 Albumin [Mass/Vol] 4.3 g/dL Normal 3.5-5.0 [facility] Comment on above: Performed By: #### L 506.1001, L500.4100, L506.0400, L501.9520, L500.4050 #### [facility] [address] [place], [address] Albumin/Globulin [Mass ratio] 1.3 {ratio} Normal 0.9-2.4 [facility] Comment on above: Performed By: #### L 506.1001, L500.4100, L506.0400, L501.9520, L500.4050 #### [facility] [address] [place], [address] ALK PHOS 115 U/L High 35-104 [facility] Comment on above: Performed By: #### L 506.1001, L500.4100, L506.0400, L501.9520, L500.4050 #### [facility] [address] [place], [address] ALT [Catalytic activity/Vol] 16 U/L Normal <=34 [facility] Comment on above: Performed By: #### L 506.1001, L500.4100, L506.0400, L501.9520, L500.4050 #### [facility] [address] [place], [address] AST [Catalytic activity/Vol] 19 U/L Normal <=31 [facility] Comment on above: Performed By: #### L 506.1001, L500.4100, L506.0400, L501.9520, L500.4050 #### [facility] [address] [place], [address] Bilirubin [Mass/Vol] 0.36 mg/dL Normal 0.00-1.30 [facility] Comment on above: Performed By: #### L 506.1001, L500.4100, L506.0400, L501.9520, L500.4050 #### [facility] [address] [place], [address] BUN/CRE 19.2 RATIO Normal 10-20 [facility] Comment on above: Performed By: #### L 506.1001, L500.4100, L506.0400, L501.9520, L500.4050 #### [facility] [address] [place], [address] Calcium [Mass/Vol] 9.4 mg/dL Normal 7.6-11.0 [facility] Comment on above: Performed By: #### L 506.1001, L500.4100, L506.0400, L501.9520, L500.4050 #### [facility] [address] [place], [address] Chloride [Moles/Vol] 105 mmol/L Normal 98-108 [facility] Comment on above: Performed By: #### L 506.1001, L500.4100, L506.0400, L501.9520, L500.4050 #### [facility] [address] [place], [address] CO2 [Moles/Vol] 24.0 mmol/L Normal 21.0-32.0 [facility] Comment on above: Performed By: #### L 506.1001, L500.4100, L506.0400, L501.9520, L500.4050 #### [facility] [address] [place], [address] Creatinine [Mass/Vol] 0.83 mg/dL Normal 0.70-1.20 [facility] Comment on above: Performed By: #### L 506.1001, L500.4100, L506.0400, L501.9520, L500.4050 #### [facility] [address] [place], [address] GAP 11 Normal 5-15 [facility] Comment on above: Performed By: #### L 506.1001, L500.4100, L506.0400, L501.9520, L500.4050 #### [facility] [address] [place], [address] GFR/1.73 sq M.predicted among non-blacks MDRD (S/P/Bld) [Vol rate/Area] 82 mL/min/{1.73_m2} Normal >60 [facility] Comment on above: Result Comment: mL/m in/1.73m2 CKD-EPI Creatinine Equation (2020) Performed By: #### L 506.1001, L500.4100, L506.0400, L501.9520, L500.4050 #### [facility] [address] [place], [address] Globulin (S) [Mass/Vol] 3.2 g/dL Normal 2.2-4.2 [facility] Comment on above: Performed By: #### L 506.1001, L500.4100, L506.0400, L501.9520, L500.4050 #### [facility] [address] [place], [address] Glucose [Mass/Vol] 108 mg/dL High 70-99 [facility] Comment on above: Performed By: #### L 506.1001, L500.4100, L506.0400, L501.9520, L500.4050 #### [facility] [address] [place], [address] Potassium [Moles/Vol] 4.1 mmol/L Normal 3.3-5.1 [facility] Comment on above: Performed By: #### L 506.1001, L500.4100, L506.0400, L501.9520, L500.4050 #### [facility] [address] [place], [address] Sodium [Moles/Vol] 140 mmol/L Normal 133-145 [facility] Comment on above: Performed By: #### L 506.1001, L500.4100, L506.0400, L501.9520, L500.4050 #### [facility] [address] [place], [address] T PROT 7.5 g/dL Normal 5.9-8.4 [facility] Comment on above: Performed By: #### L 506.1001, L500.4100, L506.0400, L501.9520, L500.4050 #### [facility] [address] [place], [address] Urea nitrogen [Mass/Vol] 16 mg/dL Normal 4-19 [facility] Comment on above: Performed By: #### L 506.1001, L500.4100, L506.0400, L501.9520, L500.4050 #### [facility] [address] [place], [address] GFR/1.73 sq M.predicted jasson g non-blacks MDRD (S/P/Bld) [Vol rate/Area]Ordered By: Carolyne Sterling on 11-06-2024 Estimated GFR (MDRD) Non-Af Amer 82 >60 [facility] Comment on above: mL/min/1.73m2 CKD-EP I Creatinine Equation (2020) L506.1001on 11-06-2024 Vitamin D 25-OH 34.1 ng/mL Normal 30-100 [facility] Comment on above: Result Comment: Regla min D Status Deficiency: <20 ng/mL (50nmol/L) Insufficiency: 20-30 ng/mL (50-75 nmol/L) Sufficiency: 30-100 ng/mL (75-250 nmol/L) Toxicity: >100 ng/mL (>250 nmol/L) Performed By: #### L 506.1001, L500.4100, L506.0400, L501.9520, L500.4050 #### [facility] [address] [place], [address] LDL calc ser/plasOrdered By: Carolyne Sterling on 11-06-2024 LDL Cholesterol, Calculated 80 mg/dL [facility] Comment on above: Ogqppiofzk=905-061 m g/dL & Higher Wkqv=865 mg/dL or greater Laboratory - Chemistry and C hemistry - challengeOrdered By: Carolyne Sterling on 11-06-2024 AST [Catalytic activity/Vol] 19 U/L <32 [facility] Lipid Profileon 11-06-2024 CHOL:HDL 3.65 Normal [facility] Comment on above: Performed By: #### L 506.1001, L500.4100, L506.0400, L501.9520, L500.4050 #### [facility] [address] [place], [address] Cholesterol [Mass/Vol] 160 mg/dL Normal <=200 [facility] Comment on above: Result Comment: Chol esterol level, Desirable <200 mg/dL Borderline high cholesterol 200-239 mg/dL High cholesterol >=240 mg/dL Recommendations of the NCEP Adult Treatment Panel for the following risk-cutoff thresholds for the [place] population. Performed By: #### L 506.1001, L500.4100, L506.0400, L501.9520, L500.4050 #### [facility] [address] [place], [address] Cholesterol in HDL [Mass/Vol] 44 mg/dL Normal [facility] Comment on above: Result Comment: Elisha onal Cholesterol Education Program (NCEP) guidelines: <40 mg/dL: Low HDL-cholesterol (major risk factor for CHD) >= 60 mg/dL: High HDL-cholesterol (negative risk factor for CHD) HDL-cholesterol is affected by a number of factors, e.g. smoking, exercise, hormones, sex and age. Performed By: #### L 506.1001, L500.4100, L506.0400, L501.9520, L500.4050 #### [facility] [address] [place], [address] Cholesterol in LDL [Mass/Vol] 80 mg/dL Normal [facility] Comment on above: Result Comment: Bord wyahjb=996-117 mg/dL Higher Ugkh=558 mg/dL or greater Performed By: #### L 506.1001, L500.4100, L506.0400, L501.9520, L500.4050 #### [facility] [address] [place], [address] Cholesterol in VLDL [Mass/Vol] 36 mg/dL Normal 5-40 [facility] Comment on above: Performed By: #### L 506.1001, L500.4100, L506.0400, L501.9520, L500.4050 #### [facility] [address] [place], [address] Triglyceride [Mass/Vol] 182 mg/dL Normal [facility] Comment on above: Result Comment: The drugs N-Acetylcysteine and Metamizole may falsely depress this assay. Normal range: <150 mg/dL Borderline High: 150-199 mg/dL High: 200-499 mg/dL Very High: >500 mg/dL Performed By: #### L 506.1001, L500.4100, L506.0400, L501.9520, L500.4050 #### [facility] [address] [place], [address] Potassium (Unsp spec) [Mass/ Vol]Ordered By: Carolyne Sterling on 11-06-2024 Potassium [Moles/Vol] 4.1 mmol/L 3.3-5.1 [facility] Screening total cholesterol/ high density lipoprotein (HDL) cholesterol ratioOrdered By: Carolyne Sterling on 11-06-2024 Cholesterol.total/Ann-Marie sterol in HDL [Mass ratio] 3.65 {ratio} [facility] Serum creatinine measurement (mass/volume)Ordered By: Carolyne Sterling on 11-06-2024 Creatinine [Mass/Vol] 0.83 mg/dL 0.70-1.20 [facility] Serum globulin measurementOr dered By: Carolyne Sterling on 11-06-2024 Globulin (S) [Mass/Vol] 3.2 g/dL 2.2-4.2 [facility] Serum glucose measurement (m ass/volume)Ordered By: Carolyne Sterling on 11-06-2024 Glucose [Mass/Vol] 108 mg/dL High 70-99 [facility] Serum or plasma alanine mendez otransferase (ALT) measurementOrdered By: Carolyne Sterling on 11-06-2024 ALT [Catalytic activity/Vol] 16 U/L <35 [facility] Serum or plasma albumin matthew urement (mass/volume)Ordered By: Carolyne Sterling on 11-06-2024 Albumin [Mass/Vol] 4.3 g/dL 3.5-5.0 [facility] Serum or plasma albumin/glob ulin mass ratioOrdered By: Carolyne Sterling on 11-06-2024 Albumin/Globulin [Mass ratio] 1.3 {ratio} 0.9-2.4 [facility] Serum or plasma alkaline iain sphatase measurementOrdered By: Carolyne Sterling on 11-06-2024 ALP [Catalytic activity/Vol] 115 U/L High 35-104 [facility] Serum or plasma calcium matthew urement (mass/volume)Ordered By: Carolyne Sterling on 11-06-2024 Calcium [Mass/Vol] 9.4 mg/dL 7.6-11.0 [facility] Serum or plasma cholesterol in HDL measurement (mass/volume)Ordered By: Carolyne Sterling on 11-06-2024 Cholesterol in HDL [Mass/Vol] 44 mg/dL >40 [facility] Comment on above: National Cholesterol Education Program (NCEP) guidelines:<40 mg/dL: Low HDL-cholesterol (major risk factor for CHD)>= 60 mg/dL: High HDL-cholesterol (negative risk factor for CHD)HDL-cholesterol is affected by a number of factors, e.g. smoking, exercise, hormones, sex and age. Serum or plasma cholesterol measurement (mass/volume)Ordered By: Carolyne Sterling on 03-11-2025 Cholesterol [Mass/Vol] 160 mg/dL <201 [facility] Comment on above: Cholesterol level, D esirable <200 mg/dLBorderline high cholesterol 200-239 mg/dLHigh cholesterol >=240 mg/dLRecommendations of the NCEP Adult Treatment Panel for the following risk-cutoff thresholds for the [place] population. Serum or plasma urea nitroge n measurement (mass/volume)Ordered By: Carolyne Sterling on 11-06-2024 Urea nitrogen [Mass/Vol] 16 mg/dL 4-19 [facility] Sodium levelOrdered By: Eugenio Sterling on 11-06-2024 Sodium [Moles/Vol] 140 mmol/L 133-145 [facility] T4 Free Directon 11-06-2024 T4 FREE DIRECT 1.20 ng/dL Normal 0.76-1.46 [facility] Comment on above: Performed By: #### L 506.1001, L500.4100, L506.0400, L501.9520, L500.4050 #### [facility] [address] [place], [place], [id number] T4 freeOrdered By: Jodie on 11-06-2024 Free T4 [Mass/Vol] 1.20 ng/dL 0.76-1.46 [facility] TSH DL <= 0.005 mIU/L QnOrde red By: Carolyne Sterling on 11-06-2024 Thyroid Stimulating Hormone (TSH) 1.800 uIU/mL 0.300-4.200 [facility] Thyroid Stim Hormone (TSH)on 11-06-2024 TSH 1.800 uIU/mL Normal 0.300-4.200 [facility] Comment on above: Performed By: #### L 506.1001, L500.4100, L506.0400, L501.9520, L500.4050 #### [facility] [address] [place], [place], [id number] Total proteinOrdered By: Jackie Sterling on 11-06-2024 Protein [Mass/Vol] 7.5 g/dL 5.9-8.4 [facility] Triglycerides measurementOrd ered By: Carolyne Sterling on 11-06-2024 Triglyceride [Mass/Vol] 182 mg/dL <199 [facility] Comment on above: The drugs N-Acetylcy steine and Metamizole may falsely depress this assay. Normal range: <150 mg/dLBorderline High: 150-199 mg/dLHigh: 200-499 mg/dLVery High: >500 mg/dL Vitamin D, 25-hydroxyOrdered By: Carolyne Sterling on 11-06-2024 Vitamin D 25-Hydroxy 34.1 ng/mL 30-100 [facility] Comment on above: Vitamin D StatusDefi ciency: <20 ng/mL (50nmol/L)Insufficiency: 20-30 ng/mL (50-75 nmol/L)Sufficiency: 30-100 ng/mL (75-250 nmol/L)Toxicity: >100 ng/mL (>250 nmol/L) Office Visit Reporton 2023 Office Visit Report [facility] [address] [place] [address] OFFICE VISIT Date of Service: 06/04/24 MR#: [id number] Acct: [id number] Patient: RUPERTO LEMUS Rep #: [id number] : 1965 Provider: IMB NURSE Age/Sex: 59/F [place] [facility] Status: Signed Intake Intake Visit Reasons: Flu Shot Chief Complaint: Establishment visit/preventative Allergies Cephalosporins Allergy (Severe, Verified 04/04/20 10:37) angioedema Penicillins Allergy (Severe, Verified 04/04/20 10:37) Angioedema Immunizations Flucelvax Triv (PF) 45 mcg (15 mcg x 3)/0.5 mL IM syringe Performing Provider: Thu Romero MD Performing Location: [facility] Administered by: Valentine Walls MA on 06/04/24 13:23 Dose Route Admin Location Dispensed Lot Number Expiration Date [place] Man ufacturer 0.5 mL IM Left Deltoid 0.5 mL [id number] 01/23/25 08481-846-50 [employer] VIS Given Date VIS Provided VIS Publication Date 06/04/24 Single Vaccine 24 Eligibility Eligibility Date Funding Source Not Applicable Assessment and Plan Assessment and Plan (1) Need for influenza vaccination: Status: Acute Orders: Orders Influenza Immunization Today Z23 - Encounter for immunization 06/04/24 1402 Date Thu Romero MD Cosign Signature: Date (if applicable) CC: Normal [facility] - Chemistry and C hemistry - challengeOrdered By: Carolyne Sterling on 11-19-2022 Free T4 [Mass/Vol] 1.38 ng/dL 0.76-1.46 [facility] No Panel InformationOrdered By: Carolyne Sterling on 11-19-2022 Thyroid Stimulating Hormone (TSH) 0.86 uIU/mL 0.358-3.74 [facility] Absolute lymphocyte counton 01-07-2022 Lymphocytes Auto (Unsp spec) [#/Vol] 2.39 10*3/uL 0.83-4.51 [facility] Work Phone: Basophil percentageon 2021 Basophils/100 WBC (Bld) 1.0 % 0-1 [facility] Work Phone: Bilirubin [Mass/Vol] 0.40 mg/dL 0.20-1.00 [facility] Work Phone: Comment on above: For patients on eltr ombopag therapy, use of Dimension [place] TBIL is not recommended. Chloride [Moles/Vol] 108 mmol/L 98-107 [facility] Work Phone: Cholesterol [Mass/Vol] 172 mg/dL <200 [facility] Work Phone: Comment on above: <200 mg/dL Desirable 200-240 mg/dL Borderline >240 mg/dL High Risk Eosinophils/100 WBC (Bld) 2.1 % 0-5 [facility] Work Phone: Glucose [Mass/Vol] 99 mg/dL 74-106 [facility] Work Phone: Neutrophils (Bld) [#/Vol] 4.2 10*3/uL 2.0-7.7 [facility] Work Phone: Neutrophils/100 WBC (Bld) 57.6 % 47-70 [facility] Work Phone: Potassium [Moles/Vol] 4.0 mmol/L 3.5-5.1 [facility] Work Phone: Protein [Mass/Vol] 7.6 g/dL 6.4-8.2 [facility] Work Phone: Sodium [Moles/Vol] 140 mmol/L 136-145 [facility] Work Phone: Triglyceride [Mass/Vol] 140 mg/dL <199 [facility] Work Phone: Comment on above: The drugs N-Acetylcy steine and Metamizole may falsely depress this assay.Serum Triglycerides Reference Interval Normal <150 mg/dL Borderline high 150 - 199 mg/dL High 200 - 499 mg/dL Very High > or = 500 mg/dL WBC (Bld) [#/Vol] 7.2 10*3/uL 4.4-11.0 [facility] Work Phone: Blood erythrocytes count (nu mber/volume)on 01-07-2022 RBC (Bld) [#/Vol] 4.67 10*6/uL 4.2-5.4 [facility] Work Phone: Blood hemoglobin measurement (mass/volume)on 01-07-2022 Hemoglobin (Bld) [Mass/Vol] 13.0 g/dL 12.0-15.0 [facility] Work Phone: Blood lymphocytes/100 leukoc yteson 01-07-2022 Lymphocytes/100 WBC (Bld) 33.1 % 19-41 [facility] Work Phone: Blood monocytes/100 leukocyt eson 01-07-2022 Monocytes/100 WBC (Bld) 5.8 % 0-10 [facility] Work Phone: Blood platelet mean volumeon 01-07-2022 Platelet mean volume (Bld) [Entitic vol] 10.1 fL 6.2-12.0 [facility] Work Phone: Determination of erythrocyte mean corpuscular volume (MCV)on 01-07-2022 MCV (RBC) [Entitic vol] 89.9 fL 81-99 [facility] Work Phone: Hematocrit Auto (Bld) [Volum e fraction]on 01-07-2022 Hematocrit (Bld) [Volume fraction] 42.0 % 37-47 [facility] Work Phone: Laboratory - Chemistry and C hemistry - challengeon 01-07-2022 ALP [Catalytic activity/Vol] 97 U/L 45-117 [facility] Work Phone: ALT [Catalytic activity/Vol] 21 U/L 13-56 [facility] Work Phone: CO2 [Moles/Vol] 25.0 mmol/L 21.0-32.0 [facility] Work Phone: Free T4 [Mass/Vol] 1.48 ng/dL 0.76-1.46 [facility]: Globulin (S) [Mass/Vol] 3.8 g/dL 2.2-4.2 [facility] Work Phone: Urea nitrogen/Creatinine [Mass ratio] 21.3 mg/mg 10-20 [facility] Work Phone: Laboratory - Hematology and Cell countson 01-07-2022 Erythrocyte distribution width (RBC) [Entitic vol] 44.4 fL 35.1-43.9 [facility] Work Phone: Erythrocyte distribution width (RBC) [Ratio] 13.4 % 11.6-14.6 [facility] Work Phone: Immature granulocytes/100 WBC (Bld) 0.400 % 0.0-0.9 [facility] Work Phone: Comment on above: IG% - Immature Granu locytes (promyelocytes, myelocytes and metamyelocytes) > 1% indicates that a LEFT SHIFT is Present. MCH (RBC) [Entitic mass] 27.8 pg 27.0-32.0 [facility] Work Phone: Nucleated RBC/100 WBC (Bld) [Ratio] 0 % 0-5 [facility] Work Phone: MCHC Auto (RBC) [Mass/Vol]on 01-07-2022 MCHC (RBC) [Mass/Vol] 31.0 g/dL 32-36 [facility] Work Phone: No Panel Informationon 01-07 Estimated GFR (MDRD) Amer 84 mL/min >60 [facility] Work Phone: Comment on above: GFR Calc Estimated GFR (MDRD) Non-Af Amer 69 mL/min >60 [facility] Work Phone: Comment on above: Non- GFR Calc Thyroid Stimulating Hormone (TSH) 0.06 uIU/mL 0.358-3.74 [facility] Work Phone: Vitamin D 25-Hydroxy 47.1 ng/mL [facility] Work Phone: Comment on above: Vitamin D 25(OH) Sta tus Range Deficiency <20 ng/mL (50nmol/L) Insufficiency 20 - 30 ng/mL (50 - 75 nmol/L) Sufficiency 30 - 100 ng/mL (75 - 250 nmol/L) Toxicity >100 ng/mL (>250 nmol/L) Platelets bldon 01-07-2022 Platelets (Bld) [#/Vol] 338 10*3/uL 150-450 [facility] Work Phone: Serum or plasma albumin matthew urement (mass/volume)on 01-07-2022 Albumin [Mass/Vol] 3.8 g/dL 3.2-5.0 [facility] Work Phone: Serum or plasma albumin/glob ulin mass ratioon 01-07-2022 Albumin/Globulin [Mass ratio] 1.0 {ratio} 0.9-2.4 [facility] Work Phone: Serum or plasma calcium matthew urement (mass/volume)on 01-07-2022 Calcium [Mass/Vol] 9.1 mg/dL 8.5-10.1 [facility] Work Phone: Serum or plasma cholesterol in HDL measurement (mass/volume)on 01-07-2022 Cholesterol in HDL [Mass/Vol] 41 mg/dL >40 [facility] Work Phone: Comment on above: The drugs N-Acetylcy steine and Metamizole may falsely depress this assay. Reference Range HDL <40 mg/dL Low HDL Cholesterol HDL >or= 60 mg/dL High HDL Cholesterol Serum or plasma cholesterol in VLDL measurement (mass/volume)on 01-07-2022 Cholesterol in VLDL [Mass/Vol] 28 mg/dL 5-40 [facility] Work Phone: Serum or plasma creatinine m easurement (mass/volume)on 01-07-2022 Creatinine [Mass/Vol] 0.89 mg/dL 0.55-1.02 [facility] Work Phone: Comment on above: The validity of the calculated GFR & GFRAA in patients over 70 years has not been determined. Clinical correlation is essential. Serum or plasma low density lipoprotein (LDL) cholesterol measurement (mass/volume)on 01-07-2022 Cholesterol in LDL [Mass/Vol] 103 mg/dL 0-130 [facility] Work Phone: Serum or plasma urea nitroge n measurement (mass/volume)on 01-07-2022 Urea nitrogen [Mass/Vol] 19 mg/dL 7-18 [facility] Work Phone: Thin prep Papanicolaou smear with manual screeningon 01-07-2022 Thin prep Papanicolaou smear with manual screening 13 U/L 15-37 [facility] Work Phone: Thin prep Papanicolaou smear with manual screening 7 5-15 [facility] Work Phone: MRI KNEE WO IV CON LTon 12-0 MRI KNEE WO IV CON LT Performed at [facility] APPROVED BY: Mustapha Otero MD MRI OF THE LEFT KNEE: DATE:08/01/2018 17:09 COMPARISON: Radiograph 05/02/2018 CLINICAL INDICATION: Lateral left knee pain TECHNIQUE: MRI of the knee was performed as per routine protocol. FINDINGS: There is a bucket-handle type tear at the lateral meniscus. It appears that the majority of the anterior body and anterior horn of the meniscus are torn and flipped posteromedially, residing over the posterior aspect of the lateral tibial spine as seen on sagittal images 13 and 14, axial image 13 and coronal images 15 through 17 of series 4. Minimal residual meniscal tissue is seen along the expected location of the anterior body and anterior horn. There is mild chondromalacia at the lateral compartment with mild marginal osteophytosis. The medial meniscus is normal. There is a 15 mm region of moderate cartilaginous loss at the posterior weightbearing portion of the medial femoral condyle. There is severe chondromalacia at the medial femoral trochlea with mild chondromalacia at the lateral trochlea and patella. The collateral and cruciate ligaments appear normal as do the quadriceps and patellar tendons. No acute bony abnormality is visualized. No sizable joint effusion or De La Rosa's cyst. IMPRESSION: 1. Bucket-handle type tear of the lateral meniscus with the majority of the anterior body and anterior horn torn and displaced posteromedially. 2. Tricompartmental chondral changes. Normal [facility] Vital Signs Date Time Vital Sign Value Performing Clinician Faci lity 01-17-2025 14:59-0400 Body height 167.6 cm Edil Wood MD Work Phone: [facility] 01-17-2025 14:59-0400 Body mass index (BMI) [Ratio] 39.06 kg/m2 Edil oWod MD Work Phone: [facility] 01-17-2025 14:59-0400 Body weight 109.77 kg Edil Wood MD Work Phone: [facility] 01-17-2025 14:59-0400 Respiratory rate 18 /min Edil Wood MD Work Phone: [facility] 01-08-2022 15:28-0400 Body weight 102.96 kg K 12 PRINCIPAL-C Maykel Fernandez K 12 PRINCIPAL Work Phone: [facility] Work Phone: 01-08-2022 15:28-0400 Diastolic blood pressure 82 mm[Hg] K 12 PRINCIPAL-C Maykel Fernandez K 12 PRINCIPAL Work Phone: [facility] Work Phone: 01-08-2022 15:28-0400 Heart rate 78 /min K 12 PRINCIPAL-C Maykel Fernandez K 12 PRINCIPAL Work Phone: [facility] Work Phone: 01-08-2022 15:28-0400 Systolic blood pressure 128 mm[Hg] K 12 PRINCIPAL-C Maykel Fernandez K 12 PRINCIPAL Work Phone: [facility] Work Phone: 01-08-2022 15:28-0400 Body weight 102.96 kg K 12 PRINCIPAL-C Maykel Fernandez K 12 PRINCIPAL Work Phone: [facility] Work Phone: 01-08-2022 15:28-0400 Diastolic blood pressure 82 mm[Hg] K 12 PRINCIPAL-C Maykel Fernandez K 12 PRINCIPAL Work Phone: [facility] Work Phone: 01-08-2022 15:28-0400 Heart rate 78 /min K 12 PRINCIPAL-C Maykel Fernandez K 12 PRINCIPAL Work Phone: [facility] Work Phone: 01-08-2022 15:28-0400 Systolic blood pressure 128 mm[Hg] K 12 PRINCIPAL-C Maykel Fernandez K 12 PRINCIPAL Work Phone: [facility] Work Phone: Encounters Encounter Date Encounter Type Care Provider Facility Start: 02-22-2025 [facility] Facility :[facility] Start: 02-12-2025 End: 02-18-2025 Telephone encounter Edil Wood MD Work Phone: [facility] Start: 02-06-2025 ambulatory EDIL WOOD Facility:[id number] Start: 02-06-2025 End: 02-06-2025 Subsequent hospital visit by physician Renetta Gomez MRI Scan Comment on above: Primary osteoarthrit is of left knee [M17.12] Start: 01-17-2025 End: 01-17-2025 Patient encounter procedure Edil Wood MD Work Phone: [facility] Comment on above: Primary osteoarthrit is of left knee (Primary Dx); Primary osteoarthritis of right knee; Old bucket handle tear of lateral meniscus of left knee Start: 01-17-2025 End: 01-17-2025 ambulatory EDIL WOOD Facility:[facility] Start: 11-06-2024 End: 11-06-2024 ambulatory Carolyne Sterling K 12 PRINCIPAL-C Work Phone: [facility] Work Phone: Start: 11-06-2024 End: 11-06-2024 Patient encounter procedure Carolyne Sterling NP-C -Laboratory, [facility] Start: 11-06-2024 End: 11-06-2024 ambulatory Carolyne Sterling Facility:[facility] Start: 06-04-2024 End: 06-04-2024 ambulatory IMB NURSE [place] Start: 12-01-2023 End: 12-01-2023 ambulatory ESTEFANIA DAMON Facility:[facility] Start: 12-01-2023 End: 12-01-2023 Patient encounter procedure Estefania Damon MD Work Phone: Ophthalmology Comment on above: Vitreous opacity (Pr imary Dx) Start: 11-19-2022 End: 11-19-2022 ambulatory [facility] Work Phone: Start: 11-19-2022 End: 11-19-2022 Patient encounter procedure [facility] Start: 02-17-2022 End: 02-17-2022 Patient encounter procedure K 12 PRINCIPAL-C Maykel Fernandez NP Work Phone: [facility]-Outpatient Bone Densitometry Start: 01-08-2022 End: 01-08-2022 Encounter for general adult medical examination without abnormal findings K 12 PRINCIPAL-C Maykel Fernandez K 12 PRINCIPAL Work Phone: [facility] Start: 01-08-2022 End: 01-08-2022 Patient encounter procedure K 12 PRINCIPAL-C Maykel Fernandez K 12 PRINCIPAL Work Phone: [facility] Start: 01-07-2022 Non-patient / Non-visit K 12 PRINCIPAL-C Aki Fernandez K 12 PRINCIPAL Work Phone: [facility] Start: 01-07-2022 Patient encounter status K 12 PRINCIPAL-C Maykel Fernandez K 12 PRINCIPAL Work Phone: [facility] Start: 01-07-2022 End: 01-07-2022 Patient encounter procedure K 12 PRINCIPAL-C Maykel Fernandez K 12 PRINCIPAL Work Phone: [facility]-Labor[facility], [facility] Procedures Date Procedure Procedure Detail Performing Clinician Start: 02-06-2025 Mri any jt lower ext rem w/o contrast matrl Edil Wood MD Work Phone: Start: 01-17-2025 Radiologic examinati on knee 3 views Edil Wood MD Work Phone: Start: 01-17-2025 Radiologic examinati on knee 3 views Edil Wood MD Work Phone: Start: 02-17-2022 Screening mammography N P-C Maykel Fernandez K 12 PRINCIPAL Work Phone: Start: 09-05-2018 Lipid 1996 panel - S heath or Plasma Estefania Damon MD Work Phone: Start: 04-24-2012 Colonoscopy Estefania diana MD Work Phone: Plan of Treatment Date Care Activity Detail Author Start: 02-06-2025 End: 02-06-2025 Patient encounter procedure 02/06/2025 9:00 AM EDT Appointment MRI Scan [address] [place] [address] Primary osteoarthritis of left knee [M17.12]; Primary osteoarthritis of right knee [M17.11]; Old bucket handle tear of lateral meniscus of left knee [M23.262] MRI Scan Comment on above: Primary osteoarthrit is of left knee [M17.12]; Primary osteoarthritis of right knee [M17.11]; Old bucket handle tear of lateral meniscus of left knee [M23.262] Start: 04-29-2024 Covid-19 Vaccine ( season) Covid-19 Vaccine ( season) [facility] Start: 04-29-2024 Influenza vaccination Influenz a Vaccine (Season Ended) [facility] Start: 09-05-2023 Lipid panel Lipid Screening [facility] Start: 08-29-2023 Behavioral Health Screening Behavioral Health Screening [facility] Start: 04-29-2023 Covid-19 Vaccine ( season) Covid-19 Vaccine ( season) [facility] Start: 02-17-2022 Dual energy X-ray absorptiometry Dexa Bone Density Study [facility] Work Phone: Start: 09-05-2021 Diabetes Screening Diabetes Screenin g [facility] Start: 03-15-2020 Screening for malign ant neoplasm of breast Mammogram Screening [facility] Start: 2015 Pneumococcal Vaccine : 50+ (1 of 1 - PCV) Pneumococcal Vaccine: 50+ (1 of 1 - PCV) [facility] Start: 2015 Shingrix Vaccine (1 of 2) Shingrix Vaccine (1 of 2) [facility] Start: 04-24-2013 Screening for malign ant neoplasm of colon [facility] Start: 2010 Screening for malign ant neoplasm of colon [facility] Start: 1995 Screening for malign ant neoplasm of cervix HPV Testing [facility] Start: 1986 Screening for malign ant neoplasm of cervix [facility] Start: 1984 Hepatitis B Vaccine (1 of 3 - 19+ 3-dose series) Hepatitis B Vaccine (1 of 3 - 19+ 3-dose series) [facility] Start: 1984 Urine microalbumin profile DTaP,Tdap,Td Vaccine (1 - Tdap) [facility] Start: 1983 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 Visit Annual PCP Team Chronic Disease Visit [facility] Start: 1983 Anxiety Screening Anxiety Screening [facility] Start: 1983 BP Controlled (<130/80) BP Controlle d (<130/80) [facility] Start: 1983 Depression Screening Depression Martinez rudi [facility] Start: 1983 Hepatitis C screening Hepatitis C Sc cally [facility] Start: 1983 HIV screening HIV Screening [facility] End: 02-16-2026 MR Knee - left WO contrast MRI KNEE WO IVCON LEFT Radiology Routine Primary osteoarthritis of left knee Primary osteoarthritis of right knee Old bucket handle tear of lateral meniscus of left knee 1 Occurrences starting 01/17/2025 until 02/16/2026 [facility] Work Phone: Comment on above: 1 Occurrences starti ng 01/17/2025 until 02/16/2026 Immunizations Immunization Date Immunization Notes Care Provider Kilo ordoñez 06-04-2024 influenza, injectabl e, madin hallie canine kidney, preservative free Carolyne Sterling K 12 PRINCIPAL-C Work Phone: [facility] 07-14-2021 Covid (Moderna) K 12 PRINCIPAL-C Maykel Yo valeri K 12 PRINCIPAL Work Phone: [facility] 07-14-2021 influenza, injectabl e, quadrivalent, preservative free Carolyne Sterling K 12 PRINCIPAL-C Work Phone: [facility] 07-14-2021 influenza, seasonal, injectable K 12 PRINCIPAL-C Maykel Fernandez K 12 PRINCIPAL Work Phone: [facility] 07-14-2021 influenza virus vaccine, unspecified formulation Estefania Damon MD Work Phone: [facility] 09-24-2020 Covid (Moderna) K 12 PRINCIPAL-C Maykel Yo valeri K 12 PRINCIPAL Work Phone: [facility] 08-27-2020 Covid (Moderna) K 12 PRINCIPAL-C Maykel Yo valeri K 12 PRINCIPAL Work Phone: [facility] 05-17-2019 influenza, injectabl e, quadrivalent, preservative free Carolyne Sterling K 12 PRINCIPAL-C Work Phone: [facility] 05-17-2019 influenza, seasonal, injectable K 12 PRINCIPAL-C Maykel Fernandez K 12 PRINCIPAL Work Phone: [facility] 02-05-2019 typhoid vaccine, unspecified formulation Estefania Damon MD Work Phone: [facility] Work Phone: Comment on above: Take 1 capsule by mo ut every other day. 06-15-2018 influenza virus vaccine, unspecified formulation Estefania Damon MD Work Phone: [facility] 06-06-2017 influenza virus vaccine, unspecified formulation Estefania Damon MD Work Phone: [facility] 06-24-2016 influenza virus vaccine, unspecified formulation Estefania Damon MD Work Phone: [facility] Payers Date Payer Category Payer Self-pay [id number] 2023 Private Health Insurance [id number] 2023 Unknown [id number] Private Health Insurance [id number] Unknown [id number] Unknown [id number] Unknown [id number] Social History Date Type Detail Facility Start: 01-08-2022 Tobacco smoking stat us NYIS Unknown if ever smoked [facility] Start: 1965 Sex Assigned At Female W [facility] Start: 12-01-2023 End: 06-04-2024 Tobacco smoking status NHIS Never smoked tobacco [facility] Start: 12-01-2023 Tobacco use and exposure Smokeless tobacco non-user [facility] Start: 12-01-2023 End: 01-17-2025 Alcohol intake Current non-drinker of alcohol (finding) [facility] Start: 04-17-2019 End: 12-01-2023 History of Social function [facility] Start: 04-17-2019 End: 12-01-2023 Tobacco use panel [facility] National Score (1-100), lower number is lower risk Not on file [facility] Start: 1965 Sex Assigned At Not on file [facility] Start: 11-15-2024 Sex Female (finding) [facility] Clinical Notes 12-01-2023 to 02-18-2025 Telephone Encounter - Alesia Velásquez - 02/18/2025 1:52 PM EDTTelephone Encounter - Alesia Velásquez - 02/18/2025 1:52 PM EDT Note Date & Type Note Facility 02-18-2025 Telephone encount er Note Spoke to Dr. Lemus, she is going to wait until she loses weight before she returns to go over MRI. [facility] 02-18-2025 Miscellaneous Notes Formattin g of this note might be different from the original. Spoke to Dr. Lemus, she is going to wait until she loses weight before she returns to go over MRI. ----- Message from Karlie Gonzalez sent at 02/12/2025 9:29 AM EDT ----- Regarding: Orthopedics / Salud/requesting sooner appointment to discuss MRI results on knee-first opening 04/25;pt able to do video/phone call Subject Line Format: Orthopedics / [Provider Name or Open & Body Part] / [Issue] Patient has been identified by name and Date of (Y/N): y Patient: Ruperto Lemus MD Date of : 1965 Previous Provider Seen: Edil Coe Body Part(s) Identified: L knee Diagnosis/Reason For Visit: MRI results Reason for the call/escalation: requesting sooner appointment to discuss MRI results on knee_first opening 04/25;pt able to do video/phone call If reason for call/escalation is discharge from ED/ER or Hospital, which facility was the patient seen at: no Was an appointment scheduled (Y/N): no-pt requesting sooner Person calling if other than patient: n/a Return call to if other than patient: n/a Best contact number: [phone] Thank you, Karlie Landa February 12, 2025 9:29 AM documented in this encounter [facility] 02-12-2025 Telephone encount er Note ----- Message from Karlie Gonzalez sent at 02/12/2025 9:29 AM EDT ----- Regarding: Orthopedics / Salud/requesting sooner appointment to discuss MRI results on knee-first opening 04/25;pt able to do video/phone call Subject Line Format: Orthopedics / [Provider Name or Open & Body Part] / [Issue] Patient has been identified by name and Date of (Y/N): y Patient: Ruperto Lemus MD Date of : 1965 Previous Provider Seen: Edil Coe Body Part(s) Identified: L knee Diagnosis/Reason For Visit: MRI results Reason for the call/escalation: requesting sooner appointment to discuss MRI results on knee_first opening 04/25;pt able to do video/phone call If reason for call/escalation is discharge from ED/ER or Hospital, which facility was the patient seen at: no Was an appointment scheduled (Y/N): no-pt requesting sooner Person calling if other than patient: n/a Return call to if other than patient: n/a Best contact number: [phone] Thank you, Karlie Landa February 12, 2025 9:29 AM [facility] 02-06-2025 History of Presen t illness Narrative Radiology Service Progress Note PATIENT NAME: Ruperto Lemus DATE OF SERVICE: February 06, 2025 TIME: 9:09 AM PATIENT IDENTITY VERIFICATION COMPLETED USING TWO (2) IDENTIFIERS: Name and Date of confirmed by patient verbally. FALL SCREENING: Has the patient had 2 falls in the last year or 1 fall with injury or currently using an Ambulatory Assistive Device (Walker, Cane, Wheelchair, Crutches, etc.)? No PATIENT GENDER DATA: Assigned female at . status: : No status: NO. PATIENT RELEVANT IMPLANT DATA REVIEWED: Not Applicable PATIENT PRESENTS WITH AN IMPLANTABLE OR ATTACHED BRANCH LENDING OFFICER: No RADIOLOGY DEPARTMENT: MR; Exam(s) Completed: Lower MSK: Knee, left. Lavender Administered: No PERIPHERAL IV DATA: Not applicable SIGNED BY: LAURIE Dunlap) February 06, 2025 9:09 AM documented in this encounter [facility] 02-06-2025 Note HNO ID: [id number] Author: [place] [employer] RT(R) Service: ? Author Type: Technologist Type: Progress Notes Filed: 02/06/2025 09:09 Note Text: Radiology Service Progress Note PATIENT NAME: Ruperto Lemus DATE OF SERVICE: February 06, 2025 TIME: 9:09 AM PATIENT IDENTITY VERIFICATION COMPLETED USING TWO (2) IDENTIFIERS: Name and Date of confirmed by patient verbally. FALL SCREENING: Has the patient had 2 falls in the last year or 1 fall with injury or currently using an Ambulatory Assistive Device (Walker, Cane, Wheelchair, Crutches, etc.)? No PATIENT GENDER DATA: Assigned female at . status: : No status: NO. PATIENT RELEVANT IMPLANT DATA REVIEWED: Not Applicable PATIENT PRESENTS WITH AN IMPLANTABLE OR ATTACHED BRANCH LENDING OFFICER: No RADIOLOGY DEPARTMENT: MR; Exam(s) Completed: Lower MSK: Knee, left. Lavender Administered: No PERIPHERAL IV DATA: Not applicable SIGNED BY: LAURIE Dunlap) February 06, 2025 9:[address] 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 Right knee: She reports atraumatic history of knee pain. The pain is located anterior. The pain is quantitated as a 3/10, 6/10.The pain is dull and intermittent. She also has symptoms of stiffness, catching, activity related pain such as twisting, turning and pivoting, and pain with ascending and descending stairs. Left knee: She reports atraumatic history of knee pain. The pain is located anterior and lateral. The pain is quantitated as a 3/10, 6/10.The pain is dull, sharp, and intermittent. She also has symptoms of stiffness, catching, locking, activity related pain such as twisting, turning and pivoting, pain with ascending and descending stairs, and pain with squatting and prolonged flexion activities. She is taking Over the counter medications or nothing for pain management purposes. There is no lower extremity numbness or tingling. No hip, back, or groin pain. She denies chest pain, SOB, fever,or chills. No calf pain reported. The patient is capable of doing activities of daily living. The patient is not using an ambulatory aide. Treatment has consisted of: activity modificaton REVIEW OF SYSTEMS: The review of systems was obtained and reviewed today. It is contained in todays visit in the nursing notes section. The patient's past medical, family medical, social and surgical histories have been reviewed. I have also reviewed allergies and medications with the patient as well. PHYSICAL EXAMINATION: Resp 18 Ht 5' 6 (1.68m) Wt 242 lb (109.8kg) BMI 39.08 kg/(m^2). Body habitus is well developed, well nourished. Ruperto is alert and oriented and in no acute distress. Evaluation of both knees: Lower Extremity: RIGHT LEFT Skin intact intact Ecchymosis absent absent Erythema absent absent Effusion None None ROM Active/Passive Extension 0 Active/Passive Flexion 115 Active/Passive Extension 0 Active/Passive Flexion 115 Tenderness patellofemoral lateral joint line and patellofemoral Muscle Compartments of Lower Extremity Muscle compartments are soft and nontender Muscle compartments are soft and nontender Medial Liana's negative for pain negative for pain Lateral Liana's negative for pain positive for pain Crepitance patellofemoral lateral joint line and patellofemoral Knee Tests: Anterior Drawer Monie Posterior Drawer Pivot Shift Sag Sign Varus Stress Test at 0 and 30 Valgus Stress Test at 0 and 30 All Negative stable to varus testing at 0 and 30 degrees. stable to valgus testing at 0 and 30 degrees. All Negative stable to varus testing at 0 and 30 degrees. stable to valgus testing at 0 and 30 degrees. Patella Normal patellar mobility Normal Q Angle J Sign not present Normal patellar tilt and glide No apprehension sign Normal patellar mobility Normal Q Angle J Sign not present Normal patellar tilt and glide No apprehension sign Alignment neutral neutral Calf No calf tenderness, negative Debi exam and no palpable cords No calf tenderness, negative Debi exam and no palpable cords Neurologic Lower extremity muscle strength intact; lower extremity sensation intact to light touch 5/5 strength Lower extremity muscle strength intact; lower extremity sensation intact to light touch 5/5 strength Circulation intact intact Edema absent absent Functional ROM is noted of the ipsilateral hip and ankle. Assessment: Primary osteoarthritis of left knee (primary encounter diagnosis) Primary osteoarthritis of right knee Old bucket handle tear of lateral meniscus of left knee Treatment and Pain Management Plan: Signs and symptoms of the left knee indicated loose fragment and internal derangement. It has not gotten better with NSAIDs, home exercises, activity modification and other nonoperative treatment. I have recommended an MRI scan The right knee has mild arthritis and will continue with nonoperative care at this point. Tylenol was recommended for pain control if tolerated. To be used as directed on the bottle. Follow-Up: after MRI Edil Wood MD X-ray evaluation: RADIOGRAPHIC EVALUATION: Standing 45 degree weight bearing, merchant and lateral radiographs of the right knee were ordered, taken and reviewed today. Right The medial compartment shows mild joint space narrowing. The lateral compartment shows mild joint space narrowing. The patellofemoral compartment shows mild joint space narrowing. The PA weight bearing shows neutral alignment of the right knee. There minimal marginal oseophytes noted. The patellae are located well in the trochlea. There are no signs of fracture, avulsion, or dislocation. There are no overt signs of bony tumor. Lateral views shows patellofemoral compartment shows mild joint space narrowing, There are minimal marginal oseophytes noted. Radiographic Interpretation: Right Knee: Mild knee arthritis RADIOGRAPHIC EVALUATION: Standing 45 degree weight bearing, merchant and lateral radiographs of the left knee were ordered, taken and reviewed today. Left The medial compartment shows mild joint space narrowing. The lateral compartment shows mild joint space narrowing. The patellofemoral compartment shows mild joint space narrowing. The PA weight bearing shows neutral alignment of the left knee. There are minimal marginal oseophytes noted. The patellae are located well in the trochlea. There are no signs of fracture, avulsion, or dislocation. There are no overt signs of bony tumor. Lateral views shows patellofemoral compartment shows mild joint space narrowing, There are minimal marginal oseophytes noted. Radiographic Interpretation: Left Knee: Mild knee arthritis Edil Wood MD This note was partially generated using [employer] voice recognition system, and there may be some incorrect words, spellings, and punctuation that were not noted in checking the note before saving. Edil Wood MD REVIEW OF SYSTEMS: GENERAL: Well developed, well nourished. No acute distress PAIN: Pain b/l knee CARDIOVASCULAR: Negative for chest pain, leg swelling and palpations. MSK: Negative for joint swelling SKIN: Negative for lesions, rash, itching, metal sensitivity NEURO: Negative for seizure, trauma, numbness/tingling of extremities. ENDOCRINE: Negative for diabetic associated symptoms HEMATOLOGY: Negative for excessive bleeding, clots, bleeding disorders. documented in this encounter [facility] 01-17-2025 Note HNO ID: [id number] Author: EDIL WOOD MD Service: ? 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 Right knee: She reports atraumatic history of knee pain. The pain is located anterior. The pain is quantitated as a 3/10, 6/10.The pain is dull and intermittent. She also has symptoms of stiffness, catching, activity related pain such as twisting, turning and pivoting, and pain with ascending and descending stairs. Left knee: She reports atraumatic history of knee pain. The pain is located anterior and lateral. The pain is quantitated as a 3/10, 6/10.The pain is dull, sharp, and intermittent. She also has symptoms of stiffness, catching, locking, activity related pain such as twisting, turning and pivoting, pain with ascending and descending stairs, and pain with squatting and prolonged flexion activities. She is taking Over the counter medications or nothing for pain management purposes. There is no lower extremity numbness or tingling. No hip, back, or groin pain. She denies chest pain, SOB, fever,or chills. No calf pain reported. The patient is capable of doing activities of daily living. The patient is not using an ambulatory aide. Treatment has consisted of: activity modificaton REVIEW OF SYSTEMS: The review of systems was obtained and reviewed today. It is contained in todays visit in the nursing notes section. The patient's past medical, family medical, social and surgical histories have been reviewed. I have also reviewed allergies and medications with the patient as well. PHYSICAL EXAMINATION: Resp 18 Ht 5' 6 (1.68m) Wt 242 lb (109.8kg) BMI 39.08 kg/(m2). Body habitus is well developed, well nourished. Ruperto is alert and oriented and in no acute distress. Evaluation of both knees: Lower Extremity: RIGHT LEFT Skin intact intact Ecchymosis absent absent Erythema absent absent Effusion None None ROM Active/Passive Extension 0 Active/Passive Flexion 115 Active/Passive Extension 0 Active/Passive Flexion 115 Tenderness patellofemoral lateral joint line and patellofemoral Muscle Compartments of Lower Extremity Muscle compartments are soft and nontender Muscle compartments are soft and nontender Medial Liana's negative for pain negative for pain Lateral Liana's negative for pain positive for pain Crepitance patellofemoral lateral joint line and patellofemoral Knee Tests: Anterior Drawer Monie Posterior Drawer Pivot Shift Sag Sign Varus Stress Test at 0 and 30 Valgus Stress Test at 0 and 30 All Negative stable to varus testing at 0 and 30 degrees. stable to valgus testing at 0 and 30 degrees. All Negative stable to varus testing at 0 and 30 degrees. stable to valgus testing at 0 and 30 degrees. Patella Normal patellar mobility Normal Q Angle J Sign not present Normal patellar tilt and glide No apprehension sign Normal patellar mobility Normal Q Angle J Sign not present Normal patellar tilt and glide No apprehension sign Alignment neutral neutral Calf No calf tenderness, negative Debi exam and no palpable cords No calf tenderness, negative Debi exam and no palpable cords Neurologic Lower extremity muscle strength intact; lower extremity sensation intact to light touch 5/5 strength Lower extremity muscle strength intact; lower extremity sensation intact to light touch 5/5 strength Circulation intact intact Edema absent absent Functional ROM is noted of the ipsilateral hip and ankle. Assessment: Primary osteoarthritis of left knee (primary encounter diagnosis) Primary osteoarthritis of right knee Old bucket handle tear of lateral meniscus of left knee Treatment and Pain Management Plan: Signs and symptoms of the left knee indicated loose fragment and internal derangement. It has not gotten better with NSAIDs, home exercises, activity modification and other nonoperative treatment. I have recommended an MRI scan The right knee has mild arthritis and will continue with nonoperative care at this point. Tylenol was recommended for pain control if tolerated. To be used as directed on the bottle. Follow-Up: after MRI Edil Wood MD X-ray evaluation: RADIOGRAPHIC EVALUATION: Standing 45 degree weight bearing, merchant and lateral radiographs of the right knee were ordered, taken and reviewed today. Right The medial compartment shows mild joint space narrowing. The lateral compartment shows mild joint space narrowing. The patellofemoral compartment shows mild joint space narrowing. The PA weight bearing shows neutral alignment of the right knee. There minimal marginal oseophytes noted. The patellae are located well in the trochle (more content not included)... [facility] 01-17-2025 Note HNO ID: [id number] Author: PANKAJ LYLES Tech Service: ? Author Type: Pneumatic Hoist Operator Type: Progress Notes Filed: 01/27/2025 11:21 Note Text: REVIEW OF SYSTEMS: GENERAL: Well developed, well nourished. No acute distress PAIN: Pain b/l knee CARDIOVASCULAR: Negative for chest pain, leg swelling and palpations. MSK: Negative for joint swelling SKIN: Negative for lesions, rash, itching, metal sensitivity NEURO: Negative for seizure, trauma, numbness/tingling of extremities. ENDOCRINE: Negative for diabetic associated symptoms HEMATOLOGY: Negative for excessive bleeding, clots, bleeding disorders. [facility] 01-17-2025 Note RADIOGRAPHIC EVALUAT ION: Standing 45 degree weight bearing, merchant and lateral radiographs of the right knee were ordered, taken and reviewed today. Right The medial compartment shows mild joint space narrowing. The lateral compartment shows mild joint space narrowing. The patellofemoral compartment shows mild joint space narrowing. The PA weight bearing shows neutral alignment of the right knee. There minimal marginal oseophytes noted. The patellae are located well in the trochlea. There are no signs of fracture, avulsion, or dislocation. There are no overt signs of bony tumor. Lateral views shows patellofemoral compartment shows mild joint space narrowing, There are minimal marginal oseophytes noted. Radiographic Interpretation: Right Knee: Mild knee arthritis RADIOGRAPHIC EVALUATION: Standing 45 degree weight bearing, merchant and lateral radiographs of the left knee were ordered, taken and reviewed today. Left The medial compartment shows mild joint space narrowing. The lateral compartment shows mild joint space narrowing. The patellofemoral compartment shows mild joint space narrowing. The PA weight bearing shows neutral alignment of the left knee. There are minimal marginal oseophytes noted. The patellae are located well in the trochlea. There are no signs of fracture, avulsion, or dislocation. There are no overt signs of bony tumor. Lateral views shows patellofemoral compartment shows mild joint space narrowing, There are minimal marginal oseophytes noted. Radiographic Interpretation: Left Knee: Mild knee arthritis [facility] 01-17-2025 Note RADIOGRAPHIC EVALUAT ION: Standing 45 degree weight bearing, merchant and lateral radiographs of the right knee were ordered, taken and reviewed today. Right The medial compartment shows mild joint space narrowing. The lateral compartment shows mild joint space narrowing. The patellofemoral compartment shows mild joint space narrowing. The PA weight bearing shows neutral alignment of the right knee. There minimal marginal oseophytes noted. The patellae are located well in the trochlea. There are no signs of fracture, avulsion, or dislocation. There are no overt signs of bony tumor. Lateral views shows patellofemoral compartment shows mild joint space narrowing, There are minimal marginal oseophytes noted. Radiographic Interpretation: Right Knee: Mild knee arthritis RADIOGRAPHIC EVALUATION: Standing 45 degree weight bearing, merchant and lateral radiographs of the left knee were ordered, taken and reviewed today. Left The medial compartment shows mild joint space narrowing. The lateral compartment shows mild joint space narrowing. The patellofemoral compartment shows mild joint space narrowing. The PA weight bearing shows neutral alignment of the left knee. There are minimal marginal oseophytes noted. The patellae are located well in the trochlea. There are no signs of fracture, avulsion, or dislocation. There are no overt signs of bony tumor. Lateral views shows patellofemoral compartment shows mild joint space narrowing, There are minimal marginal oseophytes noted. Radiographic Interpretation: Left Knee: Mild knee arthritis [facility] 12-01-2023 Note HNO ID: [id number] Author: ESTEFANIA DAMON MD Service: ? Author Type: Physician Type: Progress Notes Filed: 12/01/2023 09:29 Note Text: This is a 58 year old year female upon referral with PVD in both eyes. Visual acuity with correction is 20/20 RE and 20/20 LE. IOP is 17/15. Anterior segment exam is significant for Cataract OU. Dilated fundus examination demonstrates PVD OU with no peripheral pathology. I recommend obs and f/u 1 year. Consider Cataract extraction and Pars plana vitrectomy simultaneously. I have confirmed and edited as necessary the relevant HPI, ophthalmic history, ROS, and the neuro exam findings as obtained by others. I have seen and examined Ruperto Lemus MD. I have discussed the case and the management of this patient's care with the Resident/Fellow, if applicable. I also have reviewed and agree with the assessment and plan as stated above and agree with all of its relevant components. [facility] 12-01-2023 History of Presen t illness Narrative This is a 58 year old year female upon referral with PVD in both eyes. Visual acuity with correction is 20/20 RE and 20/20 LE. IOP is 17/15. Anterior segment exam is significant for Cataract OU. Dilated fundus examination demonstrates PVD OU with no peripheral pathology. I recommend obs and f/u 1 year. Consider Cataract extraction and Pars plana vitrectomy simultaneously. I have confirmed and edited as necessary the relevant HPI, ophthalmic history, ROS, and the neuro exam findings as obtained by others. I have seen and examined Ruperto Lemus MD. I have discussed the case and the management of this patient's care with the Resident/Fellow, if applicable. I also have reviewed and agree with the assessment and plan as stated above and agree with all of its relevant components. documented in this encounter [facility] Evaluation note Diagnosis Onset Date Encounter for preventative a dult health care examination acute Hypothyroidism acute [facility] Work Phone: Evaluation note* Diagnosis Onset Date Resolution Status Encounter for preventative a atrium health care examination acute Hypothyroidism acute Anxiety noneactive [facility] Work Phone: Evaluation noteNo assessment information available [facility] Work Phone: Evaluation note* Diagnosis Vitreous opacity- Primary Other vitreous opacities [facility] Primary osteoarthritis of left knee- Primary Primary localized osteoarthrosis, lower leg Primary osteoarthritis of right knee Primary localized osteoarthrosis, lower leg Old bucket handle tear of lateral meniscus of left knee [facility] Primary osteoarthritis of left knee Primary localized osteoarthrosis, lower leg Primary osteoarthritis of right knee Primary localized osteoarthrosis, lower leg Old bucket handle tear of lateral meniscus of left knee [facility] (narrative)No reason for referral information availableWAdena Regional Medical Center Work Phone: Summary Purpose Family History No Family History Records Found Relationship Condition Age at Onset Recorded Date/T jennifer Not Specified Sjogren's syndrome Unknown Diabetes mellitus Unknown Psoriatic arthritis Unknown Multiple myeloma Unknown aunt Malignant neoplasm of breast Unknown grandmother Malignant neoplasm of colon Unknown Advance Directives No Advanced Directives Records FoundNo Advanced Directives Records FoundNo Advanced Directives Records FoundNo Advanced Directives Records FoundNo Advanced Directives Records Found Chief Complaint and Reason for Visit Chief Complaint Amb Documentation est care. Reason for Visit Encounter for preven tative adult health care examination Hypothyroidism Chief Complaint Amb Documentation est care. SCREENING, POSTMENOPAUSAL Reason for Visit Encounter for preven tative adult health care examination Hypothyroidism Anxiety Additional Source Comments INFORMATION SOURCE (unrecogn ized section and content) DATE CREATED AUTHOR 04/17/2019 [facility] DATE CREATED AUTHOR AUTHOR'S ORGANIZ ATION 12/02/2023 [facility] DATE CREATED AUTHOR AUTHOR'S ORGANIZ ATION 02/08/2025 [facility] DATE CREATED AUTHOR AUTHOR'S ORGANIZ ATION 02/17/2025 [facility] DATE CREATED AUTHOR AUTHOR'S ORGANIZ ATION [facility]20[facility] Goals (unrecognized section and content) Goals may be documented in a n alternate sectionGoals may be documented in an alternate sectionGoals may be documented in an alternate sectionGoals may be documented in an alternate section Care Teams (unrecognized sec tion and content) Team Status: Active Member Role Status Dates Maykel Fernandez NP, K 12 PRINCIPAL-C Primary Care Provider Active Team Status: Inactive Member Role Status Dates Maykel Fernandez NP, K 12 PRINCIPAL-C Primary Care Provider Active SONIDO Coe Attending Provider, Referring Pr mart Active Freight Receiver Relationship Specialty Start Date End Date Self PCP - General Other 04/04/12 Team Status: Active Member Role Status Dates SONIDO Coe Primary Care Provider Active Team Status: Inactive Member Role Status Dates SONIDO Coe Primary Care Provider Active Start: November 06, 2024 End: November 06, 2024 SONIDO Coe Attending Provider Active Start: November 06, 2024 End: November 06, 2024 Freight Receiver Relationship Specialty Start Date End Date Self PCP - General Other 04/04/12 Freight Receiver Relationship Specialty Start Date End Date Self PCP - General Other 04/04/12 Freight Receiver Relationship Specialty Start Date End Date Self PCP - General Other 04/04/12 Source Comments (unrecognize d section and content) In the event this informatio n is protected by the Federal Confidentiality of Alcohol and Drug Abuse Patient Records regulations: The Federal rules restrict any use of the information to criminally investigate or prosecute any alcohol or drug abuse patient.[facility] the event this information is protected by the Federal Confidentiality of Alcohol and Drug Abuse Patient Records regulations: The Federal rules restrict any use of the information to criminally investigate or prosecute any alcohol or drug abuse patient.[facility] Center[facility] the event this information is protected by the Federal Confidentiality of Alcohol and Drug Abuse Patient Records regulations: The Federal rules restrict any use of the information to criminally investigate or prosecute any alcohol or drug abuse patient.[facility] Center[facility] the event this information is protected by the Federal Confidentiality of Alcohol and Drug Abuse Patient Records regulations: The Federal rules restrict any use of the information to criminally investigate or prosecute any alcohol or drug abuse patient.[facility] Reason for Visit (unrecogniz ed section and content) Reason Comments Posterior Vitreous Detachment Evaluation Both Eyes Dry Eye(s) Both Eyes S/P: Refractive Las ik- Laser in Situ Keratomileusis OD 08/29/2008S/P: Refractive Lasik-Laser in Situ Keratomileusis OS 08/29/2008 Reason Comments New Reason Comments Radiology MRI Specialty Diagnoses / Procedures Referred By Bandar osorio Referred To Contact MR IMAGING Diagnoses Primary osteoarthritis of left knee Primary osteoarthritis of right knee Old bucket handle tear of lateral meniscus of left knee Procedures MRI KNEE WO IVCON LEFT MRI ANY JT LOWER EXTREM W/O CONTRAST MATRL Edil Wood MD [address] [place] [address] Phone: tel: fax: [place] [phone] Referral ID Status Reason Start Date Expiration Date V isits Requested Visits Authorized [id number] Closed Auto-Generate d Referral 02/06/2025 08/28/2025 1 1 Active Administered Medications - up to 3 most recent administrations Administered Medications (un recognized section and content) Medication Order MAR Action Action Date Dose Rate Site PHENYLephrine 2.5 % 1 Drop (AK-DILATE, LEONARD-SYNEPHRINE) 1 Drop, BOTH EYES, DIRECTED, Starting on Edna 12/01/23 at 0830, Until Edna 12/01/23 at 2028, Administer for dilation PROTECT FROM LIGHT, OPHT CLINIC MED ORDERS Given 12/01/2023 8:30 AM EDT 1 Drop proparacaine 0.5 % 1 Drop (ALCAINE) 1 Drop, BOTH EYES, DIRECTED, Starting on Edna 12/01/23 at 0830, Until Edna 12/01/23 at 2028, Administer for pneumo tonometry, tonopen tonometry, or pachymetry. In the event of a proparacaine shortage, administer 1 drop of tetracaine 0.5% ophthalmic drops into both eyes as directed for pneumo tonometry, tonopen tonometry, or pachymetry, OPHT CLINIC MED ORDERS Given 12/01/2023 8:30 AM EDT 1 Drop tropicamide 1 % 1 Drop (MYDRIACYL) 1 Drop, BOTH EYES, DIRECTED, Starting on Edna 12/01/23 at 0830, Until Edna 12/01/23 at 2028, Administer for dilation, OPHT CLINIC MED ORDERS Given 12/01/2023 8:30 AM EDT 1 Drop FOR RECORDS PERTAINING TO PATIENTS WHO ARE OR HAVE BEEN ENROLLED IN A CHEMICAL DEPENDENCY/SUBSTANCEABUSE PROGRAM, SOME INFORMATION MAY BE OMITTED. This clinical summary was aggregated from multiple sources. Caution should be exercised in using it in the provision of clinical care. This summary normalizes information from multiple sources, and as a consequence, information in this document may materially change the coding, format and clinical context of patient data. In addition, data may be omitted in some cases. CLINICAL DECISIONS SHOULD BE BASED ON THE PRIMARY CLINICAL RECORDS. [facility] [employer] [facility]. provides no warranty or guarantee of the accuracy or completeness of information in this document.
== END | disposition home or self-care (01) ==
LOC: OPBI 07:18
PROVIDERS: PCP Nurse Practitioner Family; Referring Provider Nurse Practitioner Family; Visit Provider Nurse Practitioner Family
DX: Z12.31 Encounter for screening mammogram for malignant neoplasm of breast (principal)
CPT/HCPCS: 77063; 77067